=== PATIENT | female | born 1970 | race Caucasian/White ===

== ENCOUNTER 2018-03-18 08:50 | Emergency (ER) | payer OTHER ==
[~2018-03-18] VITALS: Ht 165.1 cm; Wt 108.0 kg
== END 2018-03-18 11:33 | disposition home or self-care (01) ==
LOC: ED 08:50
DX: S09.90XA Unspecified injury of head, initial encounter (principal); S16.1XXA Strain of muscle, fascia and tendon at neck level, initial encounter; M25.519 Pain in unspecified shoulder; F17.200 Nicotine dependence, unspecified, uncomplicated; V49.40XA Driver injured in collision with unspecified motor vehicles in traffic accident, initial encounter
CPT/HCPCS: 70450; 72125; 84703; 99284

== ENCOUNTER 2019-06-24 12:38 | Emergency (ER) | payer OTHER ==
[~2019-06-24] VITALS: Ht 165.1 cm; Wt 108.0 kg
[2019-06-24] MEDS ORDERED: TRAMADOL HCL50 MG PO (14:00)
== END 2019-06-24 14:16 | disposition home or self-care (01) ==
LOC: ED 12:38
DX: G56.21 Lesion of ulnar nerve, right upper limb (principal)
CPT/HCPCS: 73080; 99283

== ENCOUNTER 2019-10-05 18:24 | Emergency (ER) | payer OTHER ==
[~2019-10-05] VITALS: Ht 165.1 cm; Wt 108.0 kg
--- OUTSIDE RECORDS SUMMARY | ~2019-10-05 | XMS | Encounter Summary ---
Demographics + + + | Address | [address] | | | [place] [address] | + + + | Home Phone | | + + + | Preferred Language | Unknown | + + + | Marital Status | Single | + + + | Cheondoism Affiliation | 1013 | + + + | Race | Unknown | + + + | Ethnic Group | Unknown | + + + Author + + + | Author | [facility] | | | and [place] | + + + | Organization | [facility] | | | and [place] | + + + | Address | Unknown | + + + | Phone | Unavailable | + + + Support + + +---------+ + | Name | Relationship | Address | Phone | + + +---------+ + | Jl Reyes | [place] | Unknown | | + + +---------+ + Care Team Providers + +------+ + | Care Coil Winder Hand Name | Role | Phone | + +------+ + | Camilo Cormier MD | PCP | | + +------+ + Encounter Details +--------+ + + + + | Date | Type | Department | Care Team | Description | +--------+ + + + + | 11/14/ | Orders Only | [facility] | Wilbert Jim[facility]nez | Cervical | | 2017 | | PHYSIATRY [address] | MD [address] | radiculopathy | | | | [place], | [place] | (Primary Dx) | | | | [place] [address] | [address] | | | | | [phone] | | | +--------+ + + + + Social History + + + +--------+ + | Tobacco Use | Types | Packs/Day | Years | Date | | | | | Used | | + + + +--------+ + | Former Smoker | Cigarettes | 0.25 | 11 | Quit: 10/21/2014 | + + + +--------+ + + +---+---+---+ | Smokeless Tobacco: | | | | | Never Used | | | | + +---+---+---+ + + +---------+ + | Alcohol Use | Drinks/Week | oz/Week | Comments | + + +---------+ + | Yes | 0 Standard drinks | 0.0 | Social | | | or equivalent | | | + + +---------+ + + + + | Sex Assigned at | Date Recorded | | | | + + + | Not on file | | + + + + + + + | Job Start Date | Occupation | Industry | + + + + | Not on file | Not on file | Not on file | + + + + + + + + | Travel History | Travel Start | Travel End | + + + + + + | No recent travel history available. | + + documented as of this encounter Plan of Treatment Not on filedocumented as of this encounter Results [facility] Cervical Thoracic Interlaminar (11/19/2016 3:35 PM PST) + + | Specimen | + + | | + + + + + | Narrative | Performed At | + + + | 11/19/2016 CERVICAL INTERLAMINAR EPIDURAL STEROID INJECTION | [facility] | | CLINICAL HISTORY: ICD-10 CODE M54.12 CERVICAL RADICULOPATHY | [facility] ([facility]) | | Lana Ross presents to the fluoroscopy suite for a | [facility]ENTER | | fluoroscopically-guided C7-T1 interlaminar epidural steroid injection, | - IMAGING | | left of midline, as part of conservative management for chronic | | | pain with cervical radiculopathy and degenerative disk disease. | | | After informed consent was obtained, the patient lay in the prone | | | position on the fluoroscopy table. The area was identified under | | | fluoroscopic guidance. The area was prepped and draped in sterile | | | fashion. A 25-gauge, 1.5-inch needle was inserted into this region | | | and approximately 3 mL of buffered 1% lidocaine was infused. Then a | | | 22-gauge epidural needle was advanced into the epidural space at the | | | C7-T1 level. Confirmation into the epidural space was obtained | | | with loss of resistance, as well as infusion of approximately 1 mL | | | of Isovue contrast which showed epidural flow. Then, a combination | | | of 2.5 mL of normal saline and 1.5 mL of 6 mg/mL Celestone was | | | infused. The patient tolerated the procedure well without | | | complications. Pre- and post-procedure blood pressures were stable. | | | The patient was given verbal as well as written followup | | | instructions. Prior to the start of the procedure, the following | | | were performed and verified, including correct patient identity, | | | correct site/side marked and visible, agreement on the procedure to | | | be done, correct patient positioning and an accurate procedure | | | consent form. Any safety precautions based on clinical history | | | and/or medication use have been addressed. I personally performed | | | the procedure above. Estimated blood loss: Minimal | | | Complications: None Findings: As expected Anesthesia: Local 1% | | | Lidocaine | | + + + + + + + + | Performing | Address | City/State/Zipcode | Phone Number | | Organization | | | | + + + + + | [facility] | [address] | [place] | [phone] | | [facility] | | [id number] | | | - IMAGING | | | | + + + + + documented in this encounter Visit Diagnoses + + | Diagnosis | + + | Cervical radiculopathy - Primary Brachial neuritis or radiculitis nos | + + documented in this encounter"
--- OUTSIDE RECORDS SUMMARY | ~2019-10-05 | XMS | Encounter Summary ---
Demographics + + + | Address | [address] | | | [place] [address] | + + + | Home Phone | | + + + | Preferred Language | Unknown | + + + | Marital Status | Single | + + + | Alevism Affiliation | 1013 | + + + | Race | Unknown | + + + | Ethnic Group | Unknown | + + + Author + + + | Author | [facility] | | | and [place] | + + + | Organization | [facility] | | | and [place] [...] Team Providers + +------+ + | Care Casing Mixer Name | Role | Phone | + +------+ + | Camilo Cormier MD | PCP | | + +------+ + Encounter Details +--------+ + + + + | Date | Type | Department | Care Team | Description | +--------+ + + + + | 11/20/ | Orders Only | [facility] | Gerry Lyn | Neck pain (Primary | | 2016 | | [address] | Dx) | | | | [address] | [address] | | | | | [place], [place] | [place] [address] | | | | | [address] | [phone] | | | | | [phone] | | | +--------+ + + + [...] Not on filedocumented as of this encounter Visit Diagnoses + + | Diagnosis | + + | Neck pain - Primary Cervicalgia | + + documented in this encounter"
--- OUTSIDE RECORDS SUMMARY | ~2019-10-05 | XMS | Encounter Summary ---
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 100 mg, Oral, 2 | | 17 9:05 | | | | | TIMES DAILY, First dose on Divya | | AM PDT | | | | | 01/24/17 at 1245, First line agent | | | | | | | for constipation, Post-op/Phase | | | | | | | II | | | | | | + +-------+ +--------+---+---+ +-------+ +--------+---+---+ | Given | 01/25/20 | 100 mg | | | | | 17 9:15 | | | | | | PM PDT | | | | +-------+ +--------+---+---+ | Given | 01/25/20 | 100 mg | | | | | 17 1:44 | | | | | | PM PDT | | | | +-------+ +--------+---+---+ +---+---+ | | | +---+---+ + +-------+ +-------+---+---+ | DULoxetine (CYMBALTA) DR | Given | 01/26/20 | 90 mg | | | | capsule 90 mg 90 mg, Oral, | | 17 9:05 | | | | | DAILY, First dose on Sat01/24/17 | | AM PDT | | | | | at 1245, Do not open capsule., | | | | | | | Post-op/Phase II | | | | | | + +-------+ +-------+---+---+ +---+---+ | | | +---+---+ + +-------+ +--------+---+---+ | gabapentin (NEURONTIN) capsule | Given | 01/26/20 | 800 mg | | | | 800 mg 800 mg, Oral, 3 TIMES | | 17 9:05 | | | | | DAILY, First dose on Sat01/24/17 | | AM PDT | | | | | at 1400, Post-op/Phase II | | | | | | + +-------+ +--------+---+---+ +-------+ +--------+---+---+ | Given | 01/25/20 | 800 mg | | | | | 17 9:15 | | | | | | PM PDT | | | | +-------+ +--------+---+---+ | Given | 01/25/20 | 800 mg | | | | | 17 1:44 | | | | | | PM PDT | | | | +-------+ +--------+---+---+ +---+---+ | | | +---+---+ + +-------+ +---------+---+---+ | HYDROcodone-acetaminophen | Given | 01/26/20 | 2 | | | | (NORCO) 7.5-325 mg per tablet 1- | | 17 9:03 | tablets | | | | tablet 1-2 tablet, Oral, EVERY | | AM PDT | | | | | 4 HOURS PRN, Pain, Starting Divya | | | | | | | 01/24/17 at 1228, Maximum | | | | | | | acetaminophen is 4000 mg/day from | | | | | | | all sources, Post-op/Phase II | | | | | | + +-------+ +---------+---+---+ +-------+ +---------+---+---+ | Given | 01/25/20 | 2 | | | | | 17 4:26 | tablets | | | | | PM PDT | | | | +-------+ +---------+---+---+ +---+---+ | | | +---+---+ + + + +---+ +---+ | lactated ringers (LR) infusion | Rate/Dos | 01/26/20 | | 50 mL/hr | | | at 100 mL/hr, Intravenous, | e Change | 17 1:05 | | | | | CONTINUOUS, Starting [facility] 01/24/17 | | AM PDT | | | | | at 0830 | | | | | | + + + +---+ +---+ +---------+ +---+-------+---+ | New Bag | 01/25/20 | | 100 | | | | 17 1:44 | | mL/hr | | | | PM PDT | | | | +---------+ +---+-------+---+ | New Bag | 01/25/20 | | | | | | 17 11:17 | | | | | | AM PDT | | | | +---------+ +---+-------+---+ +---+---+ | | | +---+---+ + +-------+ +--------+---+---+ | lactulose liquid 30 mL 30 mL, | Given | 01/26/20 | 30 mLs | | | | Oral, 2 TIMES DAILY, First dose | | 17 9:05 | | | | | on [facility] 01/24/17 at 1245, If | | AM PDT | | | | | docusate, senna, and polyethylene | | | | | | | glycol ineffective x 24 hours or | | | | | | | not ordered, Post-op/Phase II | | | | | | + +-------+ +--------+---+---+ +-------+ +--------+---+---+ | Given | 01/25/20 | 30 mLs | | | | | 17 9:15 | | | | | | PM PDT | | | | +-------+ +--------+---+---+ | Given | 01/25/20 | 30 mLs | | | | | 17 1:44 | | | | | | PM PDT | | | | +-------+ +--------+---+---+ +---+---+ | | | +---+---+ + +-------+ +------+---+---+ | morphine injection 2-4 mg 2-4 | Given | 01/25/20 | 2 mg | | | | mg, Intravenous, EVERY 2 HOURS | | 17 6:47 | | | | | PRN, Pain, Starting Divya 01/24/17 at | | PM PDT | | | | | 1228, If oral route not an | | | | | | | option. Slow IV push, not faster | | | | | | | than 2mg/minute. First dose must | | | | | | | be lowest dose, titrate to | | | | | | | effective dose by repeat of | | | | | | | lowest dose every 30 minutes prn | | | | | | | pain, may not exceed maximum dose | | | | | | | ordered per interval. Use Pasero | | | | | | | Sedation Scale., Post-op/Phase | | | | | | | II | | | | | | + +-------+ +------+---+---+ +-------+ +------+---+---+ | Given | 01/25/20 | 2 mg | | | | | 17 1:44 | | | | | | PM PDT | | | | +-------+ +------+---+---+ +---+---+ | | | +---+---+ documented in this encounter
--- OUTSIDE RECORDS SUMMARY | ~2019-10-05 | XMS | Encounter Summary ---
Demographics + + + | Address | [address] | | | [place] [address] | + + + | Home Phone | | + + + | Preferred Language | Unknown | + + + | Marital Status | Single | + + + | Scientologist Affiliation | [id number] | + + + | Race | Unknown | + + + | Ethnic Group | Unknown | + + + Author + + + | Author | [facility] | | | and [place] | + + + | Organization | [facility] | | | and [place] [...] Team Providers + +------+ + | Care Electronics Inspector Name | Role | Phone | + +------+ + | Camilo Cormier MD | PCP | | + +------+ + Encounter Details +--------+ + + + + | Date | Type | Department | Care Team | Description | +--------+ + + + + | 11/26/ | Episode | [facility] | Juanita Govea | | | 2017 | Changes | NEUROSURGERY [address] | John, Embedded Software Test Engineer | | | | | [facility] | | | | | | [place] | | | | | | [phone] | | | | | | [phone] | | | +--------+ + + + [...] filedocumented as of this encounter Visit Diagnoses Not on filedocumented in this encounter"
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
--- OUTSIDE RECORDS SUMMARY | ~2019-10-05 | XMS | Encounter Summary ---
Demographics + + + | Address | [address] | | | [place] [address] | + + + | Home Phone | | + + + | Preferred Language | Unknown | + + + | Marital Status | Single | + + + | Holiness Affiliation | 1013 | + + + | Race | Unknown | + + + | Ethnic Group | Unknown | + + + Author + + + | Author | [facility] | | | and [place] | + + + | Organization | [facility] | | | and [...] Team Providers + +------+ + | Care Military Technology Manager Name | Role | Phone | + +------+ + | Camilo Cormier MD | PCP | | + +------+ + Reason for Visit + + + | Reason | Comments | + + + | Pre-Procedure | pre surgical check in instructions | + + + Encounter Details +--------+ + + + + | Date | Type | Department | Care Team | Description | +--------+ + + + + | 01/22/ | Telephone | [facility] [place] | Viktor Lee MD | Pre-Procedure (pre | | 2017 | | NEUROSURGERY [address] | [address] | surgical check in | | | | [address] | [place] [address] | instructions ) | | | | [place] | [phone] | | | | | [address] | | | | | | [phone] | | | +--------+ + + + [...]
--- OUTSIDE RECORDS SUMMARY | ~2019-10-05 | XMS | Encounter Summary ---
Demographics + + + | Address | [address] | | | [place] [address] | + + + | Home Phone | | + + + | Preferred Language | Unknown | + + + | Marital Status | Single | + + + | Zoroastrianism Affiliation | 1013 | + + + | Race | Unknown | + + + | Ethnic Group | Unknown | + + + Author + + + | Author | [facility] | | | and [place] | + + + | Organization | [facility] | | | and [place] [...] Team Providers + +------+ + | Care Manager Of Financial Name | Role | Phone | + +------+ + | Camilo Cormier MD | PCP | | + +------+ + Reason for Visit + + + | Reason | Comments | + + + | Surgery Appointment | | + + + Encounter Details +--------+ + + + + | Date | Type | Department | Care Team | Description | +--------+ + + + + | 01/09/ | Telephone | [facility] | Viktor Lee MD | Surgery Appointment | | 2017 | | NEUROSURGERY [address] | [address] | | | | | [address] | [place] [address] | | | | | [place] | [phone] | | | | | [address] | | | | | | [phone] | | | +--------+ + + + [...]
--- OUTSIDE RECORDS SUMMARY | ~2019-10-05 | XMS | Encounter Summary ---
Demographics + + + | Address | [address] | | | [place] [address] | + + + | Home Phone | | + + + | Preferred Language | Unknown | + + + | Marital Status | Single | + + + | Taoism Affiliation | 1013 | + + + | Race | Unknown | + + + | Ethnic Group | Unknown | + + + Author + + + | Author | [facility] | | | and [place] | + + + | Organization | [facility] | | | and [place] [...] Team Providers + +------+ + | Care Financial Health Counselor Name | Role | Phone | + +------+ + | Camilo Cormier MD | PCP | | + +------+ + Encounter Details +--------+ + + + + | Date | Type | Department | Care Team | Description | +--------+ + + + + | 10/02/ | Abstract | [facility] | Fred Beaulieu, | | | 2015 | | PHYSIATRY [address] | [address] | | | | | [place], | [place] | | | | | [place] [address] | [address] | | | | | [phone] | | | +--------+ + + + [...]
--- OUTSIDE RECORDS SUMMARY | ~2019-10-05 | XMS | Encounter Summary ---
Demographics + + + | Address | [address] | | | [place] [address] | + + + | Home Phone | | + + + | Preferred Language | Unknown | + + + | Marital Status | Single | + + + | Faith Affiliation | 1013 | + + + | Race | Unknown | + + + | Ethnic Group | Unknown | + + + Author + + + | Author | [facility] | | | and [place] | + + + | Organization | [facility] | | | and [...] Team Providers + +------+ + | Care Forge Press Operator Name | Role | Phone | [...] | | | | | | | [place] | | | | | | | [...] | | | | | | [place] | | | | | | | ALLOGRAFT | | | | | | | FOR SPINE | | | | | | | SURGERY ONLY | | | | | | | STRUCTURAL | | | | | | | [place] REMOVE | | | | | | [...] Anterior | | | | [address] | [place] [address] | Cervical Discectomy | | | | [place] | [phone] | Fusion | | | | [address] | | | | | | [phone] | | | +--------+---------+ + + + [...] of admission the patient was admitted to [facility] and underwent a C6-7 AC DF with [...] Electronically signed by: Bryan Pratt, 01/25/2017 8[facility] in this encounter Discharge Instructions Instructions [...] t raise your hands over your head afq2rvth(s)after your surgery. Don t drive until your [...] this your 1 month post op appointment. [id number] [email or web address]. [address] [place] [address], [place] [address]. All righ ts reserved. This information is [...] might be diffe rent from the original. [facility] NEUROSURGERY PROGRESS NOTE PATIENT NAME: Lana Ross [...] has no apparent deficits with short or nursing home memory. MOTOR EXAM: Motor strength is improved SENSORY EXAM: Sensory exam is improved 24 HOUR LABS: [facility] Labs (Last 10 results in the past 24 hours) 01/24/17 0843 Expiration Date 2018-09-03 Internal QC Acceptable Lot Number [id number] test, Urine, Qual Negative Specific [place], POC ASSESSMENT: NEUROSURGICAL DIAGNOSES: S/p lumbar fusion [...] | 1.010, 1.015, | | | | [place], | | 1.020, 1.025 | | | | POC | | | | | + + + + + + | Lot Number | [id number] | | | | + + + [...] | | | 1,000 mg), Oral, ONCE, [facility] 01/24/17 | | AM PDT | | | | | at 0830, For 1 dose, Pre-op | | | | | | + +--------+ +--------+------+------+ +---+---+ | | | +---+---+ + +-------+ +---------+---+---+ | bacitracin in NS solution PRN, | Given | 01/25/20 | 50,000 | | | | Starting [facility] 01/24/17 at 0748, | | 17 [...] | | | | First dose on [facility] 01/24/17 at 1245, | | AM [...] | | | | | | | [facility] 4/6/17 at 1700, For 2 doses, [...] PDT | | | | | Starting [facility] 01/24/17 at 1228, Use | | [...] | | | | | CONTINUOUS, Starting [facility] 01/24/17 | | AM PDT | [...] 9:05 | | | | | on [facility] 01/24/17 at 1245, If | | [...]
--- OUTSIDE RECORDS SUMMARY | ~2019-10-05 | XMS | Encounter Summary ---
Demographics + + + | Address | [address] | | | [place] [address] | + + + | Home Phone | | + + + | Preferred Language | Unknown | + + + | Marital Status | Single | + + + | Baptist Affiliation | 1013 | + + + | Race | Unknown | + + + | Ethnic Group | Unknown | + + + Author + + + | Author | [facility] | | | and [place] | + + + | Organization | [facility] [...] Team Providers + +------+ + | Care Tugger Operator Name | Role | Phone | [...] | +--------+ + + + + | 01/03/ | Telephone | [facility] | Viktor Lee MD | Surgery Appointment | | 2017 | | NEUROSURGERY [address] | [address] | | | | | [address] | [place] [address] | | | | | [place] | [phone] | | | | | [address] | | | | | | [phone] | | | +--------+ + + + [...]
--- OUTSIDE RECORDS SUMMARY | ~2019-10-05 | XMS | Encounter Summary ---
Demographics + + + | Address | [address] | | | [place] [address] | + + + | Home Phone | | + + + | Preferred Language | Unknown | + + + | Marital Status | Single | + + + | Christian Affiliation | 1013 | + + + | Race | Unknown | + + + | Ethnic Group | Unknown | + + + Author + + + | Author | [facility] | | | and [place] | + + + | Organization | [facility] | | | and [place] [...] Team Providers + +------+ + | Care Director Of Math Name | Role | Phone | + [...] [address] | radiculopathy | | | | [address], | [place] | (Primary Dx) | | | | [place] [address] | [address] | | | | | [phone] | | | +--------+ + + + [...] HISTORY: ICD-10 CODE M54.12 CERVICAL RADICULOPATHY | [facility] | | Lana Ross presents to the [...] [address] | [place] | [phone] | | [facility] | | [address] | | | - IMAGING | | | | + + + + + documented in this encounter Visit Diagnoses + + | Diagnosis | + + | Cervical radiculopathy - Primary Brachial neuritis or radiculitis nos | + + documented in this encounter"
--- OUTSIDE RECORDS SUMMARY | ~2019-10-05 | XMS | Encounter Summary ---
Demographics + + + | Address | [address] | | | [place] [address] | + + + | Home Phone | | + + + | Preferred Language | Unknown | + + + | Marital Status | Single | + + + | Spiritism Affiliation | 1013 | + + + | Race | Unknown | + + + | Ethnic Group | Unknown | + + + Author + + + | Author | [facility] | | | and [place] | + + + | Organization | [facility] | | | and [place] [...] Team Providers + +------+ + | Care Hash Slinger Name | Role | Phone | + +------+ + | Camilo Cormier MD | PCP | | + +------+ + Encounter Details +--------+ + + + + | Date | Type | Department | Care Team | Description | +--------+ + + + + | 01/11/ | Preadmit | [facility] | Viktor Lee MD | Pre-operative | | 2017 | Visit | [facility] | [address] | clearance (Primary | | | | CLINIC [address] | [place] [address] | Dx); C7 | | | | [place] | [phone] | radiculopathy; | | | | [address] | | Cervical spondylosis | | | | | | with myelopathy; | | | | | | Cervical spinal | | | | | | stenosis; Foraminal | | | | | | stenosis of cervical | | | | | | region | +--------+ + + + + Social [...] | + +--------+ + + + | CULTURE, MRSA | Routin | 01/11/2017 | Pre-operative | Results for this | | | e | 9:37 AM | clearance | procedure are in the | | | | PDT | | results section. | + +--------+ + + + | CBC WITH | Routin | 01/11/2017 | C7 radiculopathy | Results for this | | DIFFERENTIAL | e | 9:36 AM | Cervical spondylosis | procedure are in the | | | | PDT | with myelopathy | results section. | | | | | Cervical spinal | | | | | | stenosis Foraminal | | | | | | stenosis of cervical | | | | | | region | | + +--------+ + + + | BASIC METABOLIC | Routin | 01/11/2017 | C7 radiculopathy | Results for this | | PANEL | e | 9:36 AM | Cervical spondylosis | procedure are in the | | | | PDT | with myelopathy | results section. | | | | | Cervical spinal | | | | | | stenosis Foraminal | | | | | | stenosis of cervical | | | | | | region | | + +--------+ + + + | ECG 12 LEAD | Routin | 01/11/2017 | C7 radiculopathy | Results for this | | | e | 9:29 AM | Cervical spondylosis | procedure are in the | | | | PDT | with myelopathy | results section. | | | | | Cervical spinal | | | | | | stenosis Foraminal | | | | | | stenosis of cervical | | | | | | region | | + +--------+ + + + documented in this encounter Results Culture, MRSA (01/11/2017 9:37 AM PDT) + + + + + + | Component | Value | Ref Range | Performed | Pathologist | | | | | At | Signature | + + + + + + | Culture | Negative for MRSA by | | [facility] | | | | chromogenic agar method | | [facility] | | | | | | [facility] | | | | | | C[facility] - | | | | | | LABORATORY | | + + + + + + + + | Specimen | + + | Respiratory - Both | | anterior nares (body | | structure) | + + + + + + + | Performing | Address | City/State/Zipcode | Phone Number | | Organization | | | | + + + + + | [facility] | [address] | [place] | [phone] | | [facility] | | [address] | | | - LABORATORY | | | | + + + + + CBC with Differential (01/11/2017 9:36 AM PDT) + +---------+ + + + | Component | Value | Ref Range | Performed | Pathologist | | | | | At | Signature | + +---------+ + + + | WBC | 8.4 | 4.0 - 11.0 K/uL | [facility] | | | | | | [facility] | | | [facility] | [facility] | | | | | | [facility] - | | | | | | LABORATORY | | + +---------+ + + + | RBC | 4.50 | 3.70 - 5.20 | [facility] | | | | | M/uL | [facility] | | | | | | [facility] | | | | | | CENTER - | | | | | | LABORATORY | | + +---------+ + + + | Hemoglobin | 14.2 | 11.5 - 16.0 | [facility] | | | | | g/dL | [facility] | | | | | | [facility] | | | | | | C[facility] - | | | | | | LABORATORY | | + +---------+ + + + | Hematocrit | 41.8 | 34.0 - 47.0 % | [facility] | | | | | | [facility] | | | | | | [facility] | | | | | | C[facility] - | | | | | | LABORATORY | | + +---------+ + + + | MCV | 92.9 | 83.0 - 101.0 fL | [facility] | | | | | | [facility] | | | | | | [facility] | | | | | | C[facility] - | | | | | | LABORATORY | | + +---------+ + + + | MCH | 31.5 | 28.0 - 35.0 pg | [facility] | | | | | | [facility] | | | | | | [facility]ICAL | | | | | | CENTER - | | | | | | LABORATORY | | + +---------+ + + + | MCHC | 33.9 | 32.0 - 36.0 | [facility] | | | | | g/dL | [facility] | | | | | | [facility] | | | | | | CENTER - | | | | | | LABORATORY | | + +---------+ + + + | RDW-CV | 13.1 | <15.0 % | [facility] | | | | | | [facility] | | | | | | [facility] | | | | | | CENTER - | | | | | | LABORATORY | | + +---------+ + + + | Platelet | 248 | 140 - 440 K/uL | [facility] | | | Count | | | [facility] | | | | | | [facility] | | | | | | CENTER - | | | | | | LABORATORY | | + +---------+ + + + | MPV | 8.4 | fL | [facility] | | | | | | [facility] | | | | | | [facility]ICAL | | | | | | CENTER - | | | | | | LABORATORY | | + +---------+ + + + | % | 63.3 | 45.0 - 82.0 % | [facility] | | | Neutrophils | | | [facility] | | | | | | MEDICAL | | | | | | CENTER - | | | | | | LABORATORY | | + +---------+ + + + | % | 25.5 | 20.0 - 45.0 % | [facility] | | | Lymphocytes | | | [facility] | | | | | | MEDICAL | | | | | | CENTER - | | | | | | LABORATORY | | + +---------+ + + + | % Monocytes | 7.8 | 4.0 - 12.0 % | [facility] | | | | | | [facility] | | | | | | [facility]ICAL | | | | | | CENTER - | | | | | | LABORATORY | | + +---------+ + + + | % | 2.2 | 0.0 - 5.0 % | [facility] | | | Eosinophils | | | [facility] | | | | | | MEDICAL | | | | | | CENTER - | | | | | | LABORATORY | | + +---------+ + + + | % Basophils | 1.2 (H) | 0.0 - 1.0 % | [facility] | | | | | | [facility] | | | | | | [facility]ICAL | | | | | | CENTER - | | | | | | LABORATORY | | + +---------+ + + + | Absolute | 5.30 | 1.80 - 8.50 | [facility] | | | Neutrophils | | K/uL | [facility] | | | | | | [facility]ICAL | | | | | | CENTER - | | | | | | LABORATORY | | + +---------+ + + + | Absolute | 2.20 | 0.60 - 3.20 | [facility] | | | Lymphocytes | | K/uL | [facility] | | | | | | MEDICAL | | | | | | CENTER - | | | | | | LABORATORY | | + +---------+ + + + | Absolute | 0.70 | 0.00 - 1.00 | [facility] | | | Monocytes | | K/uL | [facility] | | | | | | MEDICAL | | | | | | CENTER - | | | | | | LABORATORY | | + +---------+ + + + | Absolute | 0.20 | 0.00 - 0.40 | [facility] | | | Eosinophils | | K/uL | [facility] | | | | | | MEDICAL | | | | | | CENTER - | | | | | | LABORATORY | | + +---------+ + + + | Absolute | 0.10 | 0.00 - 0.10 | [facility] | | | Basophils | | K/uL | [facility] | | | | | | MEDICAL | | | | | | CENTER - | | | | | | LABORATORY | | + +---------+ + + + + + | Specimen | + + | Blood | + + + + + + + | Performing | Address | City/State/Zipcode | Phone Number | | Organization | | | | + + + + + | [facility] | [address] | [place] | [phone] | | [facility] | | [address] | | | - LABORATORY | | | | + + + + + Basic Metabolic Panel (01/11/2017 9:36 AM PDT) + + + + + + | Component | Value | Ref Range | Performed | Pathologist | | | | | At | Signature | + + + + + + | Na | 137 | 136 - 149 | [facility] | | | | | mmol/L | [facility] | | | | | | MEDICAL | | | | | | CENTER - | | | | | | LABORATORY | | + + + + + + | K | 4.2 | 3.5 - 5.1 | [facility] | | | | | mmol/L | [facility] | | | | | | [facility]ICAL | | | | | | CENTER - | | | | | | LABORATORY | | + + + + + + | Cl | 104 | 98 - 109 mmol/L | [facility] | | | | | | [facility] | | | | | | MEDICAL | | | | | | CENTER - | | | | | | LABORATORY | | + + + + + + | CO2 | 24 | 24 - 31 mmol/L | [facility] | | | | | | [facility] | | | | | | MEDICAL | | | | | | CENTER - | | | | | | LABORATORY | | + + + + + + | Anion Gap | 9 | 3 - 16 mmol/L | [facility] | | | | | | [facility] | | | | | | MEDICAL | | | | | | CENTER - | | | | | | LABORATORY | | + + + + + + | Glucose | 110 (H) | 70 - 109 mg/dL | [facility] | | | | | | [facility] | | | | | | MEDICAL | | | | | | CENTER - | | | | | | LABORATORY | | + + + + + + | BUN | 11 | 7 - 18 mg/dL | [facility] | | | | | | [facility] | | | | | | MEDICAL | | | | | | CENTER - | | | | | | LABORATORY | | + + + + + + | Creatinine | 0.78 | 0.60 - 1.30 | [facility] | | | | | mg/dL | [facility] | | | | | | MEDICAL | | | | | | CENTER - | | | | | | LABORATORY | | + + + + + + | eGFR if not | >60Comment: GLOMERULAR | >=60 | [facility] | | | | FILTRATION | mL/min/1.73m2 | [facility] | | | SYRIAN | RATE,ESTIMATED | | MEDICAL | | | | mL/min/1.64p9Ajqr than | | CENTER - | | | | 60 Chronic kidney | | LABORATORY | | | | disease,if found over a | | | | | | 3-month period.Less than | | | | | | 15 Kidney failureFor | | | | | | | | | | | | Americans,multiply the | | | | | | calculated GFR by 1.21. | | | | | | | | | | + + + + + + | Calcium | 9.3 | 8.3 - 10.5 | [facility] | | | | | mg/dL | [facility] | | | | | | MEDICAL | | | | | | CENTER - | | | | | | LABORATORY | | + + + + + + | BUN/Creatin | 14.1 | | [facility] | | | ine Ratio | | | [facility] | | | | | | MEDICAL | | | | | | CENTER - | | | | | | LABORATORY | | + + + + + + + + | Specimen | + + | Blood | + + + + + + + | Performing | Address | City/State/Zipcode | Phone Number | | Organization | | | | + + + + + | [facility] | [address] | [place] | [phone] | | [facility] | | [address] | | | - LABORATORY | | | | + + + + + ECG 12 lead (01/11/2017 9:29 AM PDT) + + + + + + | Component | Value | Ref Range | Performed | Pathologist | | | | | At | Signature | + + + + + + | VENTRICULAR | 81 | BPM | [facility] | | | RATE EKG | | | | | + + + + + + | ATRIAL RATE | 81 | BPM | [facility] | | + + + + + + | P-R | 138 | ms | [facility] | | | INTERVAL | | | | | + + + + + + | QRS | 96 | ms | [facility] | | | DURATION | | | | | + + + + + + | Q-T | 398 | ms | [facility] | | | INTERVAL | | | | | + + + + + + | Q-T | 462 | ms | [facility] | | | INTERVAL | | | | | | (CORRECTED) | | | | | + + + + + + | P WAVE AXIS | 27 | degrees | [facility] | | + + + + + + | QRS AXIS | -20 | degrees | [facility] | | + + + + + + | T AXIS | 38 | degrees | [facility] | | + + + + + + | INTERPRETAT | Normal sinus | | [facility] | | | ION TEXT | rhythmNormal ECGNo | | | | | | previous ECGs | | | | | | availableConfirmed by | | | | | | EWA THOMAS MD ([id number]) | | | | | | on 01/12/2017 7:34:47 AM | | | | + + + + + + + + | Specimen | + + | | + + + + + | Narrative | Performed At | + + + | | | + + + + +---------+ + + | Performing | Address | City/State/Zipcode | Phone Number | | Organization | | | | + +---------+ + + | [facility] | | | | + +---------+ + + documented in this encounter Visit Diagnoses + + | Diagnosis | + + | Pre-operative clearance - Primary Preoperative examination, unspecified | + + | C7 radiculopathy Brachial neuritis or radiculitis nos | + + | Cervical spondylosis with myelopathy | + + | Cervical spinal stenosis Spinal stenosis in cervical region | + + | Foraminal stenosis of cervical region Spinal stenosis in cervical region | + + documented in this encounter"
--- OUTSIDE RECORDS SUMMARY | ~2019-10-05 | XMS | Encounter Summary ---
Demographics + + + | Address | [address] | | | [place] [address] | + + + | Home Phone | | + + + | Preferred Language | Unknown | + + + | Marital Status | Single | + + + | Worship Affiliation | 1013 | + + + | Race | Unknown | + + + | Ethnic Group | Unknown | + + + Author + + + | Author | [facility] | | | and [place] | + + + | Organization | [facility] | | | and [...] Team Providers + +------+ + | Care Wire Winding Machine Operator Name | Role | Phone | [...] | | [address] | [place] [address] | instructions ) | | | | [place] | [phone] | | | | | [address] | | | | | | [phone] | | | +--------+ + + + [...]
--- OUTSIDE RECORDS SUMMARY | ~2019-10-05 | XMS | Encounter Summary ---
Demographics + + + | Address | [address] | | | [place] [address] | + + + | Home Phone | | + + + | Preferred Language | Unknown | + + + | Marital Status | Single | + + + | Oriental Orthodox Affiliation | 1013 | + + + | Race | Unknown | + + + | Ethnic Group | Unknown | + + + Author + + + | Author | [facility] | | | and [place] | + + + | Organization | [facility] | | | and [place] [...] Team Providers + +------+ + | Care Bridge Construction Inspector Name | Role | Phone | + +------+ + | Camilo Cormier MD | PCP | | + +------+ + Encounter Details +--------+ + + + + | Date | Type | Department | Care Team | Description | +--------+ + + + + | 01/09/ | Orders Only | [facility] | Viktor Lee MD | C7 radiculopathy | | 2017 | | NEUROSURGERY [address] | [address] | (Primary Dx); | | | | [address] | [place] [address] | Cervical spondylosis | | | | [place], [place] | [phone] | with myelopathy; | | | | [address] | | Cervical spinal | | | | [phone] | | stenosis; Foraminal | | | [...] on filedocumented as of this encounter Results XR Chest PA and Lateral (01/11/2017 10:03 AM PDT) + + | Specimen | + + | | + + + + + | Narrative | Performed At | + + + | EXAM: XR CHEST PA AND LATERAL dated 01/11/2017 10:03 AM HISTORY: | [facility] | | preoperative clearance Comparison: None. TECHNIQUE: Frontal | [facility] | | and lateral views of the chest. FINDINGS: The lungs are | [facility] | | symmetrically aerated. They are clear. There are no pleural | - IMAGING | | effusions. There is no pneumothorax. The cardiac and mediastinal | | | contours are not enlarged. Evidence of prior cervical spine fusion. | | | Scattered degenerative changes throughout the thoracic spine. | | | IMPRESSION - Negative two-view chest radiograph. Dictated and | | | Signed by: Vargas Eid MD Electronically signed: 01/11/2017 | | | 10:09 AM | | + + + + + | Procedure Note | + + | Marcellus, Rad Results In - 01/11/2017 10:12 AM PDT EXAM: XR CHEST PA AND LATERAL dated | | 01/11/2017 10:03 AMHISTORY: preoperative clearanceComparison: None.TECHNIQUE: Frontal and | | lateral views of the chest.FINDINGS:The lungs are symmetrically aerated. They are | | clear. There are no pleuraleffusions. There is no pneumothorax. The cardiac and | | mediastinal contours arenot enlarged. Evidence of prior cervical spine fusion. | | Scattered degenerativechanges throughout the thoracic spine.IMPRESSION -Negative | | two-view chest radiograph. Dictated and Signed by: Vargas Eid MD Electronically | | signed: 01/11/2017 10:09 AM | |FINDINGS: | |The lungs are symmetrically aerated. They are clear. There are no pleural | |effusions. There is no pneumothorax. The cardiac and mediastinal contours are | |not enlarged. Evidence of prior cervical spine fusion. Scattered degenerative | |changes throughout the thoracic spine. | | | |IMPRESSION - | | | |Negative two-view chest radiograph. | | | |Dictated and Signed by: Vargas Eid MD | | Electronically signed: 01/11/2017 10:09 AM | + + + + + + + | Performing | Address | City/State/Zipcode | Phone Number | | Organization | | | | + + + + + | [facility] | [address] | [place], [place] | [phone] | | [facility] | | [address] | | | - IMAGING | | [...] | | | | | M/uL | [facility] | | | | | | [...] [facility] | | | | | [facility] | | | | | | [...] | Neutrophils | | K/uL | [facility] | | | | | | MEDICAL | | | | | | CENTER - | | | | | | LABORATORY | | + +---------+ + + + | Absolute | 2.20 | 0.60 - 3.20 | [facility] | | | Lymphocytes | | K/uL | [facility] | | | | | | MEDICAL | | | | | | CENTER - | | | | | | LABORATORY | | + +---------+ + + + | Absolute | 0.70 | 0.00 - 1.00 | [facility] | | | Monocytes | | K/uL | [facility] | | | | | | MEDICAL | | | | | | CENTER - | | | | | | LABORATORY | | + +---------+ + + + | Absolute | 0.20 | 0.00 - 0.40 | [facility] | | | Eosinophils | | K/uL | [facility] | | | | | | MEDICAL | | | | | | CENTER - | | | | | | LABORATORY | | + +---------+ + + + | Absolute | 0.10 | 0.00 - 0.10 | [facility] | | | Basophils | | K/uL | [facility] | | | | [...] | + + + + + | [facility] | [address] | [place] | [phone] | | [facility] | | [address] | | | - LABORATORY | | [...] | | | | | mmol/L | [facility] | | | | [...] [facility] | | | | | | [facility] | | | | | | [facility] | | | | | | CENTER - | | | | | | LABORATORY | | + + + + + + | BUN | 11 | 7 - 18 mg/dL | [facility] | | | | | | [facility] | | | | | | [facility] | | | | | | CENTER - | | | | | | LABORATORY | | + + + + + + | Creatinine | 0.78 | 0.60 - 1.30 | [facility] | | | | | mg/dL | [facility] | | | | | | MEDICAL | | | | | | CENTER - | | | | | | LABORATORY | | + + + + + + | eGFR if not | >60Comment: GLOMERULAR | >=60 | [facility] | | | | FILTRATION | mL/min/1.73m2 | [facility] | | | [place] | RATE,ESTIMATED | | MEDICAL | | | | mL/min/1.53a1Egqd than | | CENTER - | | [...] | | | | | mg/dL | [facility] | | | | | | MEDICAL | | | | | | CENTER - | | | | | | LABORATORY | | + + + + + + | BUN/Creatin | 14.1 | | [facility] | | | ine Ratio | | | [facility] | | [...] [address] | [place] | [phone] | | [facility] | | [address] | | | - LABORATORY | | [...] | | | | EWA THOMAS MD ([id number]) | | | | | | on [...] + | Diagnosis | + + | C7 radiculopathy - Primary Brachial neuritis or radiculitis nos | + + | Cervical spondylosis with myelopathy | + + | Cervical spinal stenosis Spinal stenosis in cervical region | + + | Foraminal stenosis of cervical region Spinal stenosis in cervical region | + + documented in this encounter"
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
--- OUTSIDE RECORDS SUMMARY | ~2019-10-05 | XMS | Encounter Summary ---
Demographics + + + | Address | [address] | | | [place] [address] | + + + | Home Phone | | + + + | Preferred Language | Unknown | + + + | Marital Status | Single | + + + | Jainism Affiliation | 1013 | + + + | Race | Unknown | + + + | Ethnic Group | Unknown | + + + Author + + + | Author | [facility] | | | and [place] | + + + | Organization | [facility] | | | and [place] [...] Team Providers + +------+ + | Care Fare Enforcement Officer Name | Role | Phone | + +------+ + | Camilo Cormier MD | PCP | | + +------+ + Encounter Details +--------+ + + + + | Date | Type | Department | Care Team | Description | +--------+ + + + + | 01/11/ | [facility] | [facility] | Viktor Lee MD | C7 radiculopathy; | | 2017 | Encounter | MED CTR XRAY [address] | [address] | Cervical spondylosis | | | | [address] | [place] [address] | with myelopathy; | | | | [place] [address] | [phone] | Cervical spinal | | | | [phone] | | stenosis; Foraminal | | | | | Fawad Lentz MD | stenosis of cervical | | | | | [address] | region | | | | | [place] [facility] [place] | | | | | | [address] | | | | | | | | +--------+ + + + [...] + + documented as of this encounter Medications at Time of Discharge [...] + + + +---------+ + + | baclofen | Take 10 mg by mouth | | 0 | | | | (LIORESAL) 10 mg | 2 times daily. | | | | 7 [...] + + + +---------+ + + | DICLOFENAC PO | Take 50 mg by mouth | | 0 | | | | | 2 times daily. | | | | 7 | + + + +---------+ [...] + + + +---------+ + + | | Take 1-2 tablets by | 120 | 0 | 01/26/20 | | | HYDROcodone-acetamin | mouth every 4 hours | tablet | | 17 | 7 | | ophen (NORCO) | as needed for Pain. | | | | | | 7.5-325 mg per | | | | | | | tablet | | | | | | + + + +---------+ + + | ibuprofen (ADVIL, | Take 800 mg by mouth | | 0 | | | | MOTRIN) 200 mg | Twice daily as | | | | 7 | | tablet | needed for Pain. | | | | [...] + +--------+ + + + | XR CHEST PA AND | Routin | 01/11/2017 | C7 radiculopathy | Results for this | | LATERAL | e | 10:03 AM | Cervical spondylosis | procedure are in the | | | | PDT | with myelopathy | results section. | | | | | Cervical spinal | | | | | | stenosis Foraminal | | | | | | stenosis of cervical | | | | | | region | | + +--------+ + + + documented in this encounter Results XR Chest PA and Lateral (01/11/2017 10:03 AM PDT) + + | Specimen | + + | | + + + + + | Narrative | Performed At | + + + | EXAM: XR CHEST PA AND LATERAL dated 01/11/2017 10:03 AM HISTORY: | [facility] | | preoperative clearance Comparison: None. TECHNIQUE: [...] + | [facility] | [address] | [place], [place] | [phone] | | [facility] | | [address] | | | - IMAGING | | | | + + + + + documented in this encounter Visit Diagnoses + + | Diagnosis | + + | C7 radiculopathy Brachial neuritis or radiculitis nos | + + | Cervical spondylosis with myelopathy | + + | Cervical spinal stenosis Spinal stenosis in cervical region | + + | Foraminal stenosis of cervical region Spinal stenosis in cervical region | + + documented in this encounter"
--- OUTSIDE RECORDS SUMMARY | ~2019-10-05 | XMS | Encounter Summary ---
Demographics + + + | Address | [address] | | | [place] [address] | + + + | Home Phone | | + + + | Preferred Language | Unknown | + + + | Marital Status | Single | + + + | Mandaeism Affiliation | 1013 | + + + | Race | Unknown | + + + | Ethnic Group | Unknown | + + + Author + + + | Author | [facility] | | | and [place] | + + + | Organization | [facility] | | | and [place] [...] Team Providers + +------+ + | Care Oyster Culturist Name | Role | Phone | + +------+ + | Camilo Cormier MD | PCP | | + +------+ + Encounter Details +--------+ + + + + | Date | Type | Department | Care Team | Description | +--------+ + + + + | 01/11/ | [facility] | [facility] | Viktor Lee MD | C7 radiculopathy; | | 2017 | Encounter | MED CTR XRAY [address] | [address] | Cervical spondylosis | | | | [address] | [place] [address] | with myelopathy; | | | | [place] [address] | [phone] | Cervical spinal | | | | [phone] | | stenosis; Foraminal | | | | | Fawad Lentz MD | stenosis of cervical | | | | | [address] | region | | | | | [place] [facility] [place] | | | | | | [address] | | | | | | | [...] + | [facility] | [address] | [place], [place] | [phone] | | [facility] | | [address] | | | - IMAGING | | [...]
--- OUTSIDE RECORDS SUMMARY | ~2019-10-05 | XMS | Encounter Summary ---
Demographics + + + | Address | [address] | | | [place] [address] | + + + | Home Phone | | + + + | Preferred Language | Unknown | + + + | Marital Status | Single | + + + | Sikhism Affiliation | 1013 | + + + | Race | Unknown | + + + | Ethnic Group | Unknown | + + + Author + + + | Author | [facility] | | | and [place] | + + + | Organization | [facility] | | | and [place] [...] Team Providers + +------+ + | Care Aircraft Sheet Metal Mechanic Name | Role | Phone | + +------+ + | Camilo Cormier MD | PCP | | + +------+ + Reason for Visit +--------+ + | Reason | Comments | +--------+ + | Other | incision concern | +--------+ + Encounter Details +--------+ + + + + | Date | Type | Department | Care Team | Description | +--------+ + + + + | 01/29/ | Telephone | [facility] [place] | Viktor Lee MD | Other (incision | | 2017 | | NEUROSURGERY [address] | concern) | | | | [address] | [place] [address] | | | | | [place], [place] | [phone] | | | | | [address] | | | | | | [phone] | | | +--------+ + + + [...]
--- OUTSIDE RECORDS SUMMARY | ~2019-10-05 | XMS | Encounter Summary ---
Demographics + + + | Address | [address] | | | [place] [address] | + + + | Home Phone | | + + + | Preferred Language | Unknown | + + + | Marital Status | Single | + + + | Nondenominational Affiliation | 1013 | + + + | Race | Unknown | + + + | Ethnic Group | Unknown | + + + Author + + + | Author | [facility] | | | and [place] | + + + | Organization | [facility] | | | and [place] [...] Team Providers + +------+ + | Care Seo Marketing Specialist Name | Role | Phone | + +------+ + | Camilo Cormier MD | PCP | | + +------+ + Reason for Visit + + + | Reason | Comments | + + + | Imaging Only | | + + + Encounter Details +--------+ + + + + | Date | Type | Department | Care Team | Description | +--------+ + + + + | 02/22/ | Telephone | [facility] [place] | Viktor Lee MD | Imaging Only | | 2018 | | NEUROSURGERY [address] | [address] | | | | | [address] | [place] [address] | | | | | [place] | [phone] | | | | | [address] | | | | | | [phone] | | | +--------+ + + + [...] + + +---------+ + | Yes | 2 Cans of beer 0 | 2.0 | | | | Standard drinks or | | | | | equivalent | | | + + +---------+ [...]
--- OUTSIDE RECORDS SUMMARY | ~2019-10-05 | XMS | Encounter Summary ---
Demographics + + + | Address | [address] | | | [place] [address] | + + + | Home Phone | | + + + | Preferred Language | Unknown | + + + | Marital Status | Single | + + + | Amish Affiliation | 1013 | + + + | Race | Unknown | + + + | Ethnic Group | Unknown | + + + Author + + + | Author | [facility] | | | and [place] | + + + | Organization | [facility] | | | and [...] Team Providers + +------+ + | Care Follow Up Clerk Name | Role | Phone | + +------+ + | Camilo Cormier MD | PCP | | + +------+ + Encounter Details +--------+ + + + + | Date | Type | Department | Care Team | Description | +--------+ + + + + | 01/10/ | Orders Only | [facility] | Conrad Germain | C7 radiculopathy | | 2017 | | NEUROSURGERY [address] | [address] | (Primary Dx); | | | | [address] | [address] | Cervical spondylosis | | | | [place] | [place] [address] | with myelopathy; | | | | [address] | [phone] | S/P cervical spinal | | | | [phone] | | fusion | +--------+ + + + + Social [...] filedocumented as of this encounter Results XR Cervical Spine 2 or 3 Views (02/26/2017 2:49 PM PDT) + + | Specimen | + + | | + + + + + | Narrative | Performed At | + + + | XR CERVICAL SPINE 2 OR 3 VIEWS 02/26/2017 2:49 PM HISTORY: Postop. | [facility] | | COMPARISON: Multiple priors. FINDINGS: Visualized skull base | [facility] | | and facial structures demonstrate no acute findings. Prevertebral | [facility] | | soft tissues are normal. Again visualized are hardware for | - IMAGING | | anterior fusion from C6 through C7 with interbody graft at C6-7. | | | Osseous fusion is observed between C5 and C6. Moderate degenerative | | | changes are noted of the anterior atlantoaxial joint. There is | | | moderate osteophytosis between C4 and C5. Bone mineralization is | | | normal. The dens is normal. Vertebral body height are preserved with | | | no evidence for compression fractures. Disc height are maintained. | | | Facet joints are intact. Soft tissue structures are unremarkable. | | | Visualized upper chest demonstrates no acute findings. | | | IMPRESSION - Stable anterior fusion from C6 through C7. Dictated | | | and Signed by: Nicholas Encarnacion MD Electronically signed: 02/26/2017 | | | 3:10 PM | | + + + + + | Procedure Note | + + | Marcellus, Rad Results In - 02/26/2017 3:13 PM PDT XR CERVICAL SPINE 2 OR 3 VIEWS 02/26/2017 | | 2:49 PMHISTORY: Postop.COMPARISON: Multiple priors.FINDINGS:Visualized skull base and | | facial structures demonstrate no acute findings.Prevertebral soft tissues are | | normal.Again visualized are hardware for anterior fusion from C6 through C7 | | withinterbody graft at C6-7. Osseous fusion is observed between C5 and C6. | | Moderatedegenerative changes are noted of the anterior atlantoaxial joint. There | | ismoderate osteophytosis between C4 and C5. Bone mineralization is normal. Thedens is | | normal. Vertebral body height are preserved with no evidence forcompression fractures. | | Disc height are maintained. Facet joints are intact. Softtissue structures are | | unremarkable. Visualized upper chest demonstrates no acutefindings. IMPRESSION -Stable | | anterior fusion from C6 through C7.Dictated and Signed by: Nicholas Encarnacion MD | | Electronically signed: 02/26/2017 3:10 PM | |degenerative changes are noted of the anterior atlantoaxial joint. There is | |moderate osteophytosis between C4 and C5. Bone mineralization is normal. The | |dens is normal. Vertebral body height are preserved with no evidence for | |compression fractures. Disc height are maintained. Facet joints are intact. Soft | |tissue structures are unremarkable. Visualized upper chest demonstrates no acute | |findings. | | | |IMPRESSION - | |Stable anterior fusion from C6 through C7. | | | |Dictated and Signed by: Nicholas Encarnacion MD | | Electronically signed: 02/26/2017 3:10 PM | + + + + + + + | Performing | Address | City/State/Zipcode | Phone Number | | Organization | | | | + + + + + | [facility] | [address] | [place] | [phone] | | [facility] | | [address] | | | - IMAGING | | | | + + + + + documented in this encounter Visit Diagnoses + + | Diagnosis | + + | C7 radiculopathy - Primary Brachial neuritis or radiculitis nos | + + | Cervical spondylosis with myelopathy | + + | S/P cervical spinal fusion Arthrodesis status | + + documented in this encounter"
--- OUTSIDE RECORDS SUMMARY | ~2019-10-05 | XMS | Encounter Summary ---
Demographics + + + | Address | [address] | | | [place] [address] | + + + | Home Phone | | + + + | Preferred Language | Unknown | + + + | Marital Status | Single | + + + | Taoist Affiliation | 1013 | + + + | Race | Unknown | + + + | Ethnic Group | Unknown | + + + Author + + + | Author | [facility] | | | and [place] | + + + | Organization | and [facility] | | | and [place] [...] Team Providers + +------+ + | Care Electric Car Operator Name | Role | Phone | [...] | | [address] | [place] [address] | | | | | [place] | [phone] | | | | | [address] | | | | | | [phone] | | | +--------+ + + + [...]
--- OUTSIDE RECORDS SUMMARY | ~2019-10-05 | XMS | Encounter Summary ---
Demographics + + + | Address | [address] | | | [place] [address] | + + + | Home Phone [...] + + + | Author | [facility] | | | and [place] | + + + | Organization | [facility] | | | and [...] Team Providers + +------+ + | Care Public Works Laborer Name | Role | Phone | + [...] | | | | | | | MD | | | | | | | [...] | | | | | | SEGMENTS MD | | | | | | | ALLOGRAFT | | | | | | | FOR SPINE | | | | | | | SURGERY ONLY | | | | | | | STRUCTURAL | | | | | | | MD REMOVE | | | | | | | SPINE FIX | | | | | | | DEV,ANTERIOR | | | | | | | FUSION | | | | | | | CERVICAL | | | | | | | ANTERIOR W/ | | | | | | | PLATING | | | +--------+--------+ + + + + Encounter Details +--------+ + + + + | Date | Type | Department | Care Team | Description | +--------+ + + + + | 01/24/ | Hospital | [facility] | Viktor Lee MD | C7 radiculopathy | | 2017 - | Encounter | [facility] SUR[facility] | [address] | (Primary Dx) | | | | [address] | [place] [address] | | | 01/25/ | | [place] [address] | [phone] | | | 2016 | | [phone] | | | +--------+ + + + [...] of admission the patient was admitted to [facility] and underwent a C6-7 AC DF [...] Electronically signed by: Bryan Pratt, [facility]2017 [facility] documented in this encounter Discharge Instructions Instructions [...] t raise your hands over your head [id number])after your surgery. Don t drive until your [...] this your 1 month post op appointment. [id number] [employer] [place] [address]. All righ ts reserved. This information is [...] might be diffe rent from the original. [facility] NEUROSURGERY PROGRESS NOTE PATIENT NAME: Lana [...] Conrad Germain PA-C 10 0 mg at 01/24/17 211 DULoxetine (CYMBALTA) DR capsule 90 mg 90 [...] mg 10 mg Oral Q6H PRN Conrad Walter [place], PA-C senna (SENOKOT) tablet 8.6 mg 8.6 mg Oral BID PRN Conrad Germain PA-C ALLERGIES: No Known Allergies PHYSICAL [...] has no apparent deficits with short or assistant terminal manager memory. MOTOR EXAM: Motor strength is improved SENSORY EXAM: Sensory exam is improved 24 HOUR LABS: [facility] (Last 10 results in the past 24 hours) 01/24/17 0843 Expiration Date 2018-09-03 Internal QC Acceptable Lot Number [id number] test, Urine, Qual Negative Specific Enterprise, POC ASSESSMENT: NEUROSURGICAL DIAGNOSES: S/p lumbar fusion [...] | | + +---------+ + + JACKSON Perla No Charge (01/24/2017 11:09 AM PDT) + + | [...] | 1.010, 1.015, | | | | Enterprise, | | 1.020, 1.025 | | | | POC | | | | | + + + + + + | Lot Number | [id number] | | | | + + + [...] | + + documented in this encounter Administered Medications + +--------+ [...] | 1,000 mg), Oral, ONCE, [facility] 01/24/17 | | AM PDT | [...] | | First dose on [facility] 01/24/17 at 1245, | | AM [...] | | | | | [facility] 01/24/17 at 1700, For 2 doses, | | [...] | | | | Starting [facility] 01/24/17 at 1228, Use | | [...] | | (NORCO) 7.5-325 mg per tablet 1-2 | | 17 9:03 | tablets | | | | tablet 1-2 tablet, Oral, EVERY | | AM PDT | | | | | 4 HOURS PRN, Pain, Starting [facility] | | | | | | | [...] | | | CONTINUOUS, Starting [facility] 01/24/17 | | AM PDT | [...] 9:05 | | | | | on Divya 01/24/17 at 1245, If | | AM [...]
--- OUTSIDE RECORDS SUMMARY | ~2019-10-05 | XMS | Encounter Summary ---
Demographics + + + | Address | [address] | | | [place] [address] | + + + | Home Phone | | + + + | Preferred Language | Unknown | + + + | Marital Status | Single | + + + | Sabianist Affiliation | 1013 | + + + | Race | Unknown | + + + | Ethnic Group | Unknown | + + + Author + + + | Author | [facility] | | | and [place] | + + + | Organization | [facility] | | [...] Team Providers + +------+ + | Care Christian Science Nurse Name | Role | Phone | + +------+ + | Camilo Cormier MD | PCP | | + +------+ + Encounter Details +--------+ + + + + | Date | Type | Department | Care Team | Description | +--------+ + + + + | 06/11/ | Imaging | [facility] | Provider, | | | 2017 | Exam | [facility] | [address] | | | | | IMAGING | [place] | | | | | [phone] | [place] [address] | | +--------+ + + + + [...] + | XR CERVICAL SPINE 2 | Routin | 06/04/2017 | | Results for this | | OR 3 VIEWS | e | 2:15 PM | | procedure are in the | | | | PDT | | results section. | + +--------+ + + + documented in this encounter Results XR Cervical Spine 2 or 3 Views (06/04/2017 2:15 PM PDT) + + | Specimen | + + | | + + + + + | Narrative | Performed At | + + + | External films for comparison only - no result from [place]. | [facility] | + + + + +---------+ + + | Performing | Address | City/State/Zipcode | Phone Number | | Organization | | | | + +---------+ + + | [facility] | | | | + +---------+ + + documented in this encounter Visit Diagnoses Not on filedocumented in this encounter"
--- OUTSIDE RECORDS SUMMARY | ~2019-10-05 | XMS | Encounter Summary ---
Demographics + + + | Address | [address] | | | [place] [address] | + + + | Home Phone | | + + + | Preferred Language | Unknown | + + + | Marital Status | Single | + + + | Hoahaoism Affiliation | 1013 | + + + | Race | Unknown | + + + | Ethnic Group | Unknown | + + + Author + + + | Author | [facility] | | | and [place] | + + + | Organization | and [facility] | | | and [...] Team Providers + +------+ + | Care Assistant Plant Controller Name | Role | Phone | + +------+ + | Camilo Cormier MD | PCP | | + +------+ + Encounter Details +--------+ + + + + | Date | Type | Department | Care Team | Description | +--------+ + + + + | 11/26/ | Orders Only | [facility] | Viktor Lee MD | C7 radiculopathy | | 2017 | | NEUROSURGERY [address] | [address] | (Primary Dx); | | | | [address] | [place] [address] | Cervical spondylosis | | | | [place], [place] | [phone] | with myelopathy; | | | | [address] | | Cervical spinal | | | | [phone] | | stenosis; Foraminal | | | [...]
--- OUTSIDE RECORDS SUMMARY | ~2019-10-05 | XMS | Encounter Summary ---
Demographics + + + | Address | [address] | | | [place] [address] | + + + | Home Phone | | + + + | Preferred Language | Unknown | + + + | Marital Status | Single | + + + | Congregation Affiliation | 1013 | + + + | Race | Unknown | + + + | Ethnic Group | Unknown | + + + Author + + + | Author | [facility] | | | and [place] | + + + | Organization | [facility] | | | and [place] [...] Team Providers + +------+ + | Care Television Host Name | Role | Phone | + [...] | | | | CLINIC [address] | [place] [address] | Dx); C7 | | | | [place] | [phone] | radiculopathy; | | | | [address] | | Cervical spondylosis | | | [...] [address] | [place] | [phone] | | [facility] | | [address] | | | - LABORATORY | | [...] [address] | [place] | [phone] | | [facility] | | [address] | | | - LABORATORY | | [...] | | | | | mg/dL | [facility] | | | | | | MEDICAL | | | | | | CENTER - | | | | | | LABORATORY | | + + + + + + | eGFR if not | >60Comment: GLOMERULAR | >=60 | [facility] | | | | FILTRATION | mL/min/1.73m2 | [facility] | | | MAURITANIAN | RATE,ESTIMATED | | MEDICAL | | | | mL/min/1.61f4Xrzm than | | CENTER - | | [...] | | | | | mg/dL | [facility] | | | | | | MEDICAL | | | | | | CENTER - | | | | | | LABORATORY | | + + + + + + | BUN/Creatin | 14.1 | | [facility] | | | ine Ratio | | | [facility] | | | | | | MEDICAL [...] [address] | [place] | [phone] | | [facility] | | [address] | | | - LABORATORY | | [...] | | | | EWA THOMAS MD ([id number]) | | | | | | on [...]
--- OUTSIDE RECORDS SUMMARY | ~2019-10-05 | XMS | Clinical Summary ---
Demographics + + + | Address | [address] | | | [place] [address] | + + + | Home Phone | | + + + | Preferred Language | Unknown | + + + | Marital Status | Single | + + + | Tenriism Affiliation | 1013 | + + + | Race | Unknown | + + + | Ethnic Group | Unknown | + + + Author + + + | Author | [facility] | | | and [place] | + + + | Organization | [facility] | | | and [place] [...] Team Providers + +------+ + | Care Produce Associate Name | Role | Phone | + +------+ + | Camilo Cormier MD | PCP | | + +------+ + Allergies No Known Allergies Medications + + + +---------+------+------+-------+ | Medication | Sig | Dispensed | Refills | Star | End | Statu | | | | | | t | Date | s | | | | | | Date | | | + + + +---------+------+------+-------+ | levonorgestrel | 1 Device by | | 0 | | | Activ | | (MIRENA) 20 MCG/24HR | Intrauterine route | | | | | e | | IUD | once. | | | | | | + + + +---------+------+------+-------+ | busPIRone (BUSPAR) | Take 15 mg by mouth | | 0 | | | Activ | | 15 mg tablet | 2 times daily. | | | | | e | + + + +---------+------+------+-------+ | VENTOLIN HFA 108 | | | 0 | 04/0 | | Activ | | (90 Base) MCG/ACT | | | | 7/20 | | e | | inhaler | | | | 17 | | | + + + +---------+------+------+-------+ | baclofen | take 1 tablet by | | 0 | 06/0 | | Activ | | (LIORESAL) 10 mg | mouth twice a day if | | | 9/20 | | e | | tablet | needed | | | 17 | | | + + + +---------+------+------+-------+ | DULoxetine HCl | Take 90 mg by mouth | | 0 | | | Activ | | (CYMBALTA PO) | Daily. | | | | | e | + + + +---------+------+------+-------+ Active Problems + + + | Problem | Noted Date | + + + | S/P cervical spinal fusion | 02/26/2017 | + + + | BMI 40.0-44.9, adult | 01/23/2017 | + + + | C7 radiculopathy | 11/24/2016 | + + + | Cervical spondylosis with myelopathy | 11/24/2016 | + + + | Cervical spinal stenosis | 11/24/2016 | + + + | Foraminal stenosis of cervical region | 11/24/2016 | + + + Family History + + +------+ + | Medical History | Relation | Name | Comments | + + +------+ + | No known problems | Daughter | | | + + +------+ + | Diabetes | Father | | | + + +------+ + | Heart disease | Father | | | + + +------+ + | No known problems | Maternal | | | | | Grandfath | | | | | er | | | + + +------+ + | Cancer | Maternal | | BONE | | | Grandmoth | | | | | er | | | + + +------+ + | Fibromyalgia | Mother | | | + + +------+ + | Hepatitis C | Mother | | | + + +------+ + | Lupus | Mother | | | + + +------+ + | Rheum arthritis | Mother | | | + + +------+ + | Heart disease | Paternal | | | | | Grandfath | | | | | er | | | + + +------+ + | Stroke | Paternal | | | | | Grandfath | | | | | er | | | + + +------+ + | Alcohol abuse | Paternal | | | | | Grandmoth | | | | | er | | | + + +------+ + | Alcohol abuse | Paternal | | | | | Uncle | | | + + +------+ + | Diabetes | Paternal | | | | | Uncle | | | + + +------+ + | Fibromyalgia | Sister | | | + + +------+ + | Other (see comment) | Sister | | MESOPHONY | + + +------+ + + +------+ + + | Relation | Name | Status | Comments | + +------+ + + | Daughter | | Alive | | + +------+ + + | Daughter | | | | + +------+ + + | Father | | | | | | | (Age | | | | | 72) | | + +------+ + + | Maternal Grandfather | | | | + +------+ + + | Maternal Grandmother | | | | | | | (Age | | | | | 72) | | + +------+ + + | Mother | | Alive | | + +------+ + + | Paternal Grandfather | | | | | | | (Age | | | | | 75) | | + +------+ + + | Paternal Grandmother | | | | | | | (Age | | | | | 72) | | + +------+ + + | Paternal Uncle | | Alive | | + +------+ + + | Paternal Uncle | | | | + +------+ + + | Paternal Uncle | | | | + +------+ + + | Sister | | Alive | | + +------+ + + | Sister | | | | + +------+ + + | Sister | | | | + +------+ + + Social History + + + [...] recent travel history available. | + + Last Filed Vital Signs + + + + + | Vital Sign | Reading | Time Taken | Comments | + + + + + | Blood Pressure | 127/85 | 06/06/2017 7:56 AM | | | | | PDT | | + + + + + | Pulse | 78 | 06/06/2017 7:56 AM | | | | | PDT [...] + + + + | Weight | 111 kg (244 lb 12.8 | 06/06/2017 7:56 AM | | | | oz) | PDT | | + + + + + | Height | 165.1 cm (5' 5") | 06/06/2017 7:56 AM | | | | | PDT | | + + + + + | Body Mass Index | 40.74 | 06/06/2017 7:56 AM | | | | | PDT | | + + + + + Plan of Treatment + + + + + | Health Maintenance | Due Date | Last Done | Comments | + + + + + | Cervical Cancer | | | | | Screening (Pap) | 3 | | | + + + + + | Breast Cancer | | | | | Screening | 8 | | | + + + + + | Vaccine: Influenza | | | | | (#1) | 9 | | | + + + + + | Vaccine: | | 12/07/2014 | | | Dtap/Tdap/Td (2 - | 5 | | | | Td) | | | | + + + + + Implants + +--------+--------+ +--------+--------+--------+ | Implanted | Type | Area | Manufacture | Device | Shelf | Model | | | | | r | | Expira | / | | | | | | Identi | tion | Serial | | | | | | fier | Date | / Lot | + +--------+--------+ +--------+--------+--------+ | Imp Spn Plt Ti Zevo 21mm 1lvl | Generi | Anteri | SOF[facility]OR | | | [id number] | | - [id number]: Qty: 1 | c | or: | KANIKA - DIV | | | / / | | on 01/24/2017 by Viktor Lee | | Edgardo | [employer] | | | | | MD Su at [facility] | | | - [facility] | | | | | [facility] | | | | | | | + +--------+--------+ +--------+--------+--------+ | Geoffrey Childs Pls 1cc Aseptic | Graft | Anteri | [employer] - | | 09/12/ | [id number] | | - [id number]: Qty: | | or: | MEDT | | 2018 | | | 1 on 01/24/2017 by Yam, | | Neck | | | | /[id number] | | Viktor Blue MD at [facility] | | | | | | [phone] | | [facility] | | | | | | / | + +--------+--------+ +--------+--------+--------+ | Algrft Cerv [id number] - | Graft | Anteri | SPINALGRAFT | | 03/23/ | [id number] | | [id number]: Qty: 1 on | | or: | | | 2019 | | | 01/24/2017 by Viktor Lee, | | Neck | TECHNOLOGIE | | | /[id number] | | at [facility] | | | S - SPNL | | | [address] | | [facility] | | | | | | /[id number] | | | | | | | | 8766 | + +--------+--------+ +--------+--------+--------+ | Screw D-Thrd Slf-Drl 4.0x15mm | Screw | Anteri | [facility] | | | [id number] | | - [id number]: Qty: 2 | | or: | KANIKA - JAMARCUS | | | 5 / / | | on 01/24/2017 by Viktor Lee | | Neck | [employer] | | | | | MD Su at [facility] | | | - [facility] | | | | | [facility] | | | | | | | + +--------+--------+ +--------+--------+--------+ | Screw D-Thrd Slf-Drl 4.0x17mm | Screw | Anteri | [facility]OR | | | [id number] | | - [id number]: Qty: 2 | | or: | DANEK - DIV | | | 7 / / | | on 01/24/2017 by Viktor Lee | | Neck | [employer] | | | | | MD Su at [facility] | | | - JULIANDK | | | | | [facility] | | | | | | | + +--------+--------+ +--------+--------+--------+ Results Not on filefrom Last 3 Months Insurance + +--------+ +--------+ +---------+--------+ | Payer | Benefi | Subscriber | Effect | Phone | Address | Type | | | t Plan | ID | lia | | | | | | / | | Dates | | | | | | Group | | | | | | + +--------+ +--------+ +---------+--------+ | [employer] | [employer] | [id number] | | [phone] | | Medica | | MEDICAID HMO | HEALTH | | [id number]-Pr | 1 | | id | | | MDCD | | esent | | | | | | [place]MO [place] | | | | | | + +--------+ +--------+ +---------+--------+ + +--------+ +--------+ + + | Guarantor Name | Accoun | Relation to | Date | Phone | Billing Address | | | t Type | Patient | of | | | | | | | | | | + +--------+ +--------+ + + | Lana Ross | Person | Self | [birth year] | [address] | | | katharina/Kurtis | | 1970 | [phone] | [place] [address] | | | jose l | | | 0 (Home) | | | | | | | [phone] | | | | | | | 0 (Work) | | + +--------+ +--------+ + + Advance Directives + + + + + | Type | Date Recorded | Patient | Explanation | | | | Boring Machine Operator Double End | | + + + + + | Power of | | | | | Melter Supervisor [employer] | | | | + + + + + | Advance | 01/11/2017 9:20 | | | | Directive | AM | | | + + + + + + + + + + | Code Status | Date | Date | Comments | | | Activated | Inactivated | | + + + + + | Full Code | 01/24/2017 | 01/25/2017 | | | | 12:28 PM | 2:51 PM | | + + + + +
--- OUTSIDE RECORDS SUMMARY | ~2019-10-05 | XMS | Encounter Summary ---
Demographics + + + | Address | [address] | | | [place] [address] | + + + | Home Phone | | + + + | Preferred Language | Unknown | + + + | Marital Status | Single | + + + | Cheondoism Affiliation | 1013 | + + + | Race | Unknown | + + + | Ethnic Group | Unknown | + + + Author + + + | Author | [facility] | | | and [place] | + + + | Organization | [facility] | | | and [place] [...] Team Providers + +------+ + | Care Steam Power Plant Operator Name | Role | Phone | [...] | +--------+ + + + + | 02/06/ | Telephone | [facility] | Viktor Lee MD | Imaging Only | | 2017 | | NEUROSURGERY [address] | [address] | | | | | [address] | [place] [address] | | | | | [place] | [phone] | | | | | [address] | | | | | | [phone] | | | +--------+ + + + [...]
--- OUTSIDE RECORDS SUMMARY | ~2019-10-05 | XMS | Encounter Summary ---
Demographics + + + | Address | [address] | | | [place] [address] | + + + | Home Phone [...] | Organization | [facility] | | | and [place] [...] Team Providers + +------+ + | Care Flat Optical Element Maker Name | Role | Phone | + [...] + + | 05/09/ | Office | [facility] | Conrad Germain | S/P cervical spinal | | 2017 | Visit | NEUROSURGERY [address] | [address] | fusion (Primary Dx); | | | | [address] | [address] | Cervical | | | | [place], [place] | [place] [address] | spondylosis with | | | | [address] | [phone] | myelopathy; | | | | [phone] | | Foraminal stenosis | | | [...] from the original. Conrad Germain PA-C [address] [facility], [address] [place], [place] [address] FAX: NEUROSURGERY FOLLOW-UP CHIEF COMPLAINT: Chief Complaint [...] Procedure Laterality Date Lumbar spine surgery 04[facility]2005 [facility] Cervical spine surgery 03/2007 [place]; [place] Ankle fracture surgery 04/2015 [place]; [place] Fractured back while in labor Cervical spine surgery Anterior 01/24/2017 Procedure: C5 Hardware Removal, C6-7 Anterior Cervical Discectomy Fusion; Surgeon: Viktor Lee MD; Location: [facility] MAIN OR CURRENT MEDICATIONS: Current Outpatient Prescriptions [...]
--- OUTSIDE RECORDS SUMMARY | ~2019-10-05 | XMS | Encounter Summary ---
Demographics + + + | Address | [address] | | | [place] [address] | + + + | Home Phone | | + + + | Preferred Language | Unknown | + + + | Marital Status | Single | + + + | Jew Affiliation | 1013 | + + + | Race | Unknown | + + + | Ethnic Group | Unknown | + + + Author + + + | Author | [facility] | | | and [place] | + + + | Organization | [facility] | | | and [place] | + + + | Address | Unknown | + + + | Phone | Unavailable | + + + Support + + +---------+ + | Name | Relationship | Address | Phone | + + +---------+ + | lJ Reyes | KARO | Unknown | | + + +---------+ + Care Team Providers + +------+ + | Care Barrel Polisher Name | Role | Phone | + [...] | Neurosurgery | Diagnoses | Christofer | Eboni | | | Services | | Cervical | Fred Blue MD | Gerry Feliciano MD | | | Required | | radiculopath | [address] | | | | | y Left hand | [address] | [address] | | | | | weakness | [place], | [place], | | | | | Numbness of | [place] [address] | [place] [address] | | | | | left hand | Phone: | Phone: | | | | | Cervicalgia | [phone] | [phone] | | | | | | Fax: | Fax: | | | | | | [phone] | [phone] | +--------+ + + + + + Reason for Visit + + + | Reason | Comments | + + + | Procedure | LUE NCS | + + + Evaluate & Treat [...] | Cervical | [address] | | | | n | radiculopath | [address] | [place], | | | | | y Numbness | [place], | [place] [address] | | | | | of left hand | [place] [address] | Phone: | | | | | Left hand | Phone: | [phone] | | | | | weakness | [phone] | Fax: | | | | | Left wrist | Fax: | [phone] | | | | | pain | [phone] | | +--------+ + + + + + Encounter Details +--------+ + + + + | Date | Type | Department | Care Team | Description | +--------+ + + + + | 11/13/ | Procedure | [facility] [place] | Fred Beaulieu, | Cervical | | 2017 | visit | PHYSIATRY [address] | [address] | radiculopathy | | | | [place], | [place], [place] | (Primary Dx); Left | | | | [place] [address] | [address] | hand weakness; | | | | [phone] | | Numbness of left | | | | | | hand; Cervicalgia | +--------+ + + + + Social [...] + + + | Blood Pressure | 136/86 | 11/13/2016 8:11 AM | | | | | PST | | + + + + + | Pulse | 82 | 11/13/2016 8:11 AM | | | | | PST | | + + + + + | Temperature | - | - | | + + + + + | Respiratory Rate | 18 | 11/13/2016 8:11 AM | | | | | PST | | + + + + + | Oxygen Saturation | - | - | | + + + + + | Inhaled Oxygen | - | - | | | Concentration | | | | + + + + + | Weight | 108.9 kg (240 lb) | 11/13/2016 8:11 AM | | | | | PST | | + + + + + | Height | 162.6 cm (5' 4") | 11/13/2016 8:11 AM | | | | | PST | | + + + + + | Body Mass Index | 41.2 | 11/13/2016 8:11 AM | | | | | PST | | + + + + + documented in this encounter Patient Instructions Patient Instructions Fred Beaulieu MD - 11/13/2016 9:06 AM PSTContinue current medicati ons. Continue exercises as outlined by physical therapy. Epidural steroid injection is recommended. Neurosurgery consult is recommended. documented in this encounter Progress Notes Fred Beaulieu MD - 11/13/2016 9:24 AM PSTFormatting of this note might be different fro m the original. [facility] Physical Medicine & Rehabilitation [address] [place] [address], [address] [place] [address] Test Date: 11/13/2016 Patient Name: Lana Ross : 1970 Physician: Fred Beaulieu MD (Jr.) MR #: [id number] Sex: Female Referring Physician: Camilo Cormier MD HISTORY: Ms. Ross denies any significant changes to her symptoms since she was last seen. She contin ues to have left neck pain with radiation into the left arm. She has numbness in the left f irst, second and third fingers which is constant in timing. She has weakness in the left isabel nd which she describes as loss of tree surgeon strength. Her pain and numbness is constant in timin g. Her pain today is a 6 out of 10 on a numerical pain scale. She has completed physical t herapy. She continues to do her home exercise program daily, without any improvement. She is using medication for neuropathic pain (gabapentin). She tried using wrist splints at [facility] with some possible reduction of pain in the region of her left elbow. Epidural steroid i njection has been requested, but still pending. PHYSICAL EXAM: She has decrease sensation to monofilament over the left first, second and third fingers. The remainder of sensation is normal in the upper extremities. She has 4/5 hand tree surgeon and tr iceps on the left compared to 5/5 on the right. She has 5/5 biceps, wrist dorsiflexion, and finger abduction in both upper extremities. Reflexes were 2+ over the biceps and brachiora dialis bilaterally. The left triceps reflex was absent. The right triceps reflex was 1+. Tinel s test remains positive over the median nerve at the left wrist. Phalen s test wa s negative bilaterally. Spurling s test to the left increased left arm symptoms. Nerve Conduction Studies Anti Sensory Summary Table Site NR Peak (ms) Norm Peak (ms) O-P Amp (V) Norm O-P Amp Site1 Site2 Delta-0 (ms) Dist (cm) Mauricio (m/s) Norm Mauricio (m/s) Left Median Anti Sensory (2nd Digit) 23C Wrist 3.2 <3.6 54.5 >10 Wrist 2nd Digit 2.5 14.0 56 >39 Elbow 7.1 20.3 Elbow Wrist 3.4 22.5 66 >48 Left Radial Anti Sensory (Base 1st Digit) 24C Wrist 2.4 <2.7 32.0 Wrist Base 1st Digit 1.8 10.0 56 Left Ulnar Anti Sensory (5th Digit) 24C Wrist 3.4 <3.7 33.6 >15.0 Wrist 5th Digit 2.7 14.0 52 >38 B Elbow 6.7 18.4 B Elbow Wrist 3.0 18.0 60 >47 A Elbow 7.9 11.7 A Elbow B Elbow 1.2 10.0 83 Motor Summary Table Site NR Onset (ms) Norm Onset (ms) O-P Amp (mV) Norm O-P Amp Site1 Site2 Delta-0 (ms) Dist (cm) Mauricio (m/s) Norm Mauricio (m/s) Left Median Motor (Abd Poll Brev) 23.7C Wrist 3.8 <4.2 9.0 >5 Elbow Wrist 4.4 23.0 52 >50 Elbow 8.2 9.0 Axilla Elbow 1.6 10.0 62 Axilla 9.8 9.0 Left Ulnar Motor (Abd Dig Minimi) 24C Wrist 3.5 <4.2 14.4 >3 B Elbow Wrist 3.4 18.0 53 >53 B Elbow 6.9 13.5 A Elbow B Elbow 1.4 10.0 71 >53 A Elbow 8.3 13.2 Comparison Summary Table Site NR Peak (ms) Norm Peak (ms) P-T Amp (V) Site1 Site2 Delta-P (ms) Norm Delta (ms) Left Median/Radial Dig I Comparison (Digit 1 - 10cm) 24.2C Median 2.4 <2.9 97.4 Median Radial 0.3 <0.4 Radial 2.7 <2.8 13.9 Left Median/Ulnar Dig IV Comparison (Digit 4 - 14cm) 23.3C Median Wr 3.3 <3.3 34.5 Median Wr Ulnar Wr 0.1 <0.4 Ulnar Wr 3.2 <3.3 46.3 Left Median/Ulnar Palm Comparison (Wrist - 8cm) 24.2C Median Palm 1.9 <2.5 75.7 Median Palm Ulnar Palm 0.0 <0.3 Ulnar Palm 1.9 <2.5 22.5 F Wave Studies NR F-Lat (ms) Lat Norm (ms) L-R F-Lat (ms) L-R Lat Norm Left Median (Mrkrs) (Abd Poll Brev) 23.7C 28.85 <33 <2.2 Left Ulnar (Mrkrs) (Abd Dig Min) 24.3C 27.75 <36 <2.5 EMG Side Muscle Nerve Root Ins Act Fibs Psw Amp Dur Poly Recrt Int Pat Comment Left Deltoid Axillary C5-6 Nml Nml Nml Nml Nml Nml Nml Nml Left Biceps Musculocut C5-6 Nml Nml Nml Nml Nml Nml Nml Nml Left Triceps Radial C6-7-8 Incr 2+ 2+ Nml Nml Poly Nml Nml Left Anconeus Radial C7-8 Incr 1+ 1+ Nml Nml Nml Nml Nml Left PronatorTeres Median C6-7 Incr Nml 1+ Nml Nml Nml Nml Nml Left 1stDorInt Ulnar C8-T1 Nml Nml Nml Nml Nml Nml Nml Nml Left Abd Poll Brev Median C8-T1 Nml Nml Nml Nml Nml Nml Nml Nml Nerve Conduction Studies Motor Left/Right Comparison Site L Lat (ms) R Lat (ms) L-R Lat (ms) L Amp (mV) R Amp (mV) L-R Amp (%) Site1 Site2 L Ve l (m/s) R Mauricio (m/s) L-R Mauricio (m/s) Median Motor (Abd Poll Brev) 23.7C Wrist 3.8 9.0 Elbow Wrist 52 Elbow 8.2 9.0 Axilla Elbow 62 Axilla 9.8 9.0 Ulnar Motor (Abd Dig Minimi) 24C Wrist 3.5 14.4 B Elbow Wrist 53 B Elbow 6.9 13.5 A Elbow B Elbow 71 A Elbow 8.3 13.2 Anti Sensory Left/Right Comparison Site L Lat (ms) R Lat (ms) L-R Lat (ms) L Amp (V) R Amp (V) L-R Amp (%) Site1 Site2 L Mauricio (m/s) R Mauricio (m/s) L-R Mauricio (m/s) Median Anti Sensory (2nd Digit) 23C Wrist 3.2 54.5 Wrist 2nd Digit 56 Elbow 7.1 20.3 Elbow Wrist 66 Radial Anti Sensory (Base 1st Digit) 24C Wrist 2.4 32.0 Wrist Base 1st Digit 56 Ulnar Anti Sensory (5th Digit) 24C Wrist 3.4 33.6 Wrist 5th Digit 52 B Elbow 6.7 18.4 B Elbow Wrist 60 A Elbow 7.9 11.7 A Elbow B Elbow 83 Comparison Left/Right Comparison Site L Lat (ms) R Lat (ms) L-R Lat (ms) L Amp (V) R Amp (V) L-R Amp (%) Median/Radial Dig I Comparison (Digit 1 - 10cm) 24.2C Median 2.4 97.4 Radial 2.7 13.9 Median/Ulnar Dig IV Comparison (Digit 4 - 14cm) 23.3C Median Wr 3.3 34.5 Ulnar Wr 3.2 46.3 Median/Ulnar Palm Comparison (Wrist - 8cm) 24.2C Median Palm 1.9 75.7 Ulnar Palm 1.9 22.5 NCV FINDINGS: All nerve conduction studies (as indicated in the following tables) were with in normal limits. All F Wave latencies were within normal limits. EMG FINDINGS: Needle evaluation of the Left triceps muscle showed increased insertional act ivity, moderately increased spontaneous activity, and polyphasic potentials. The Left ancon eus and the Left pronator teres muscles showed increased insertional activity and slightly i ncreased spontaneous activity. All remaining muscles (as indicated in the following table) showed no evidence of electrical instability. DATABASE: Cervical MRI 06/2016 imaging was personally reviewed by me. The imaging demonstrates prior cervical fusion C5-6. The imaging demonstrates severe neural foraminal narrowing at left C 6-7. IMPRESSION: This is an abnormal study. Nerve conduction study of the left upper extremity was normal. There was no evidence of me thony neuropathy in the left upper extremity. There was no evidence of median neuropathy at the left wrist (e.g. carpal tunnel syndrome). There was no evidence of ulnar neuropathy in the left upper extremity. There was no evidence of radial neuropathy in the left upper extr emity. Needle EMG of the left upper extremity was abnormal. Needle EMG of the left upper extremit y confirmed the presence of left C7 radiculopathy. DISCUSSION: Ms. Ross demonstrated excellent tolerance to nerve conduction study and EMG. She was able t o complete the entire study. As noted above, this study demonstrates and confirms the presence of left C7 radiculopathy. This finding is also consistent with her clinical presentation and cervical MRI findings. Neurosurgery consult is recommended. Ms. Ross s insurance requires request from consult t o come from her PCP. Please request neurosurgery consultation. Ms. Ross should continue medication such as gabapentin. She was encouraged to continue home exercise program as outlined by physical therapy on a routine daily basis, indefinitely. C ervical epidural steroid injection is recommended, but is pending insurance approval. Approximately 15 minutes was spent face to face today with Ms. Ross, beyond the completion o f the nerve conduction study and EMG, over half of which was spent formulating and discussin g her medical treatment plan. Thank you for allowing me to be involved in the care of your patient. If you have any quest ions or comments, please do not hesitate to call. Fred Beaulieu MD (Jr.) Physical Medicine and Rehabilitation Cc: Camilo Cormier MD documented in this en counter Plan of Treatment + + +--------+ + + | Name | Type | Priori | Associated Diagnoses | Order Schedule | | | | ty | | | + + +--------+ + + | Ambulatory referral | Outpatient | Routin | Cervical | Ordered: 11/13/2016 | | to Neurosurgery | Referral | e | radiculopathy Left | | | | | | hand weakness | | | | | | Numbness of left | | | | | | hand Cervicalgia | | + + +--------+ + + documented as of this encounter Visit Diagnoses + + | Diagnosis | + + | Cervical radiculopathy - Primary Brachial neuritis or radiculitis nos | + + | Left hand weakness Muscle weakness (generalized) | + + | Numbness of left hand | + + | Cervicalgia | + + documented in this encounter
--- OUTSIDE RECORDS SUMMARY | ~2019-10-05 | XMS | Encounter Summary ---
Demographics + + + | Address | [address] | | | [place] [address] | + + + | Home Phone [...] + | Organization | [facility] | | | and [place] [...] Team Providers + +------+ + | Care Water Pipe Installer Name | Role | Phone | [...] | | | | | | | MS | | | | | | | [...] | | | | | | SEGMENTS MS | | | | | | | ALLOGRAFT | | | | | | | FOR SPINE | | | | | | | SURGERY ONLY | | | | | | | STRUCTURAL | | | | | | | MS REMOVE | | | | | | [...] + + | 01/24/ | Hospital | [facility] | Viktor Lee MD | C7 radiculopathy | | 2017 - | Encounter | [facility] | [address] | (Primary Dx) | | | | [address] | [place] [address] | | | 01/25/ | | [place] [address] | [phone] | | | 2016 | | [phone] | | | +--------+ + + + [...] of admission the patient was admitted to [facility] and underwent a C6-7 AC DF [...] Electronically signed by: Bryan Pratt, 01/25/2017 8:10 [facility] documented in this encounter Discharge Instructions Instructions [...] t raise your hands over your head [id number])after your surgery. Don t drive until your [...] this your 1 month post op appointment. [id number] [employer]. [address] [place] [address]. All righ ts reserved. This information is [...] might be diffe rent from the original. [facility] NEUROSURGERY PROGRESS NOTE PATIENT NAME: Lana Rsos AGE: 46 y.o. DATE OF SERVICE: 01/25/2017 [...] has no apparent deficits with short or long goods drier memory. MOTOR EXAM: Motor strength is improved SENSORY EXAM: Sensory exam is improved 24 HOUR LABS: [facility] (Last 10 results in the past 24 hours) 01/24/17 0843 Expiration Date 2018-09-03 Internal QC Acceptable Lot Number [id number] test, Urine, Qual Negative Specific [place], POC ASSESSMENT: NEUROSURGICAL DIAGNOSES: S/p lumbar fusion [...] | 1.010, 1.015, | | | | [place], | | 1.020, 1.025 | | | | POC | | | | | + + + + + + | Lot Number | [id number] | | | | + + + [...] | 1,000 mg), Oral, ONCE, [facility] 01/24/17 | | AM PDT | [...] | | First dose on [facility] 01/24/17 at 1245, | | AM [...] | | | | | [facility] 01/24/17 at 1700, For 2 doses, [...] | | | | Starting [facility] 01/24/17 at 1228, Use | | [...] 4 HOURS PRN, Pain, Starting [facility] | | | | | | [...] | | | CONTINUOUS, Starting [facility] 01/24/17 | | AM PDT | [...]
--- OUTSIDE RECORDS SUMMARY | ~2019-10-05 | XMS | Encounter Summary ---
Demographics + + + | Address | [address] | | | [place] [address] | + + + | Home Phone | | + + + | Preferred Language | Unknown | + + + | Marital Status | Single | + + + | Quaker Affiliation | 1013 | + + + | Race | Unknown | + + + | Ethnic Group | Unknown | + + + Author + + + | Author | [facility] | | | and [place] | + + + | Organization | [facility] | | | and [place] | [...] Team Providers + +------+ + | Care Berry Picker Machine Operator Name | Role | Phone [...] | | [address] | [place] [address] | Cervical spondylosis | | | | [place], [place] | [phone] | with myelopathy; | | | | [address] | | Cervical spinal | | | | [phone] | | stenosis; Foraminal | | | [...] + | [facility] | [address] | [place], [place] | [phone] | | [facility] | | [address] | | | - IMAGING | | [...] + | [facility] | [address] | [place] | [phone] | | [facility] | | [address] | | | - LABORATORY | | [...] | | MEDICAL | | | | mL/min/1.48t1Ffqe than | | CENTER - | | [...] [address] | [place] | [phone] | | [facility] | | [address] | | | - LABORATORY | | [...] | | | | EWA THOMAS MD ([id number]) | | | | | | on [...]
--- OUTSIDE RECORDS SUMMARY | ~2019-10-05 | XMS | Encounter Summary ---
Demographics + + + | Address | [address] | | | [place] [address] | + + + | Home Phone | | + + + | Preferred Language | Unknown | + + + | Marital Status | Single | + + + | Jewish Affiliation | 1013 | + + + | Race | Unknown | + + + | Ethnic Group | Unknown | + + + Author + + + | Author | [facility] | | | and [place] | + + + | Organization | [facility] | | | and [place] [...] Team Providers + +------+ + | Care Preservative Filler Machine Operator Name | Role | Phone [...] [address] | | | | | [place], [place] | [place] [address] | | | | | [address] | [phone] | | | | | [phone] | | | +--------+ + + + [...]
--- OUTSIDE RECORDS SUMMARY | ~2019-10-05 | XMS | Encounter Summary ---
Demographics + + + | Address | [address] | | | [place] [address] | + + + | Home Phone | | + + + | Preferred Language | Unknown | + + + | Marital Status | Single | + + + | Uatsdin Affiliation | 1013 | + + + | Race | Unknown | + + + | Ethnic Group | Unknown | + + + Author + + + | Author | [facility] | | | and [place] | + + + | Organization | [facility] | [...] Team Providers + +------+ + | Care Senior Ui Designer Name | Role | Phone | + [...] | | | y Left hand | [address] | [address] | | | | | weakness | [place], | [place], | | | | | Numbness of | [place] [address] | [place] [address] | | | | | left hand | Phone: | Phone: | | | | | Cervicalgia | [phone] | [phone] | | | | | | Fax: | Fax: | | | | | | [phone] | [phone] | +--------+ + + + + + [...] | Cervical | [address] | | | | n | radiculopath | [address] | [place], | | | | | y Numbness | [place], | [place] [address] | | | | | of left hand | [place] [address] | Phone: | | | | | Left hand | Phone: | [phone] | | | | | weakness | [phone] | Fax: | | | | | Left wrist | Fax: | [phone] | | | | | pain | [phone] | | +--------+ + + + + + Encounter Details +--------+ + + + + | Date | Type | Department | Care Team | Description | +--------+ + + + + | 11/13/ | Procedure | [facility] [place] | Fred Beaulieu, | Cervical | | 2017 | visit | PHYSIATRY [address] | [address] | radiculopathy | | | | [place], | [place], [place] | (Primary Dx); Left | | | | [place] [address] | [address] | hand weakness; | | | | [phone] | | Numbness of left | | [...] might be different fro m the original. [facility] Physical Medicine & Rehabilitation [address] [place] [address], [address] [place] [address] Test Date: 11/13/2016 Patient Name: Lana Ross : 1970 Physician: Fred Beaulieu MD (Jr.) MR #: [id number] Sex: Female Referring Physician: Camilo Cormier MD [...] nd which she describes as loss of broker assistant strength. Her pain and numbness is constant in timin g. Her pain today is a 6 out of 10 on a numerical pain scale. She has completed physical t herapy. She continues to do her home exercise program daily, without any improvement. She is using medication for neuropathic pain (gabapentin). She tried using wrist splints at [facility] with some possible reduction of pain in the region of her left elbow. Epidural steroid i njection has been requested, but still pending. PHYSICAL EXAM: She has decrease sensation to monofilament over the left first, second and third fingers. The remainder of sensation is normal in the upper extremities. She has 4/5 hand broker assistant and tr iceps on the left compared [...]
--- OUTSIDE RECORDS SUMMARY | ~2019-10-05 | XMS | Encounter Summary ---
Demographics + + + | Address | [address] | | | [place] [address] | + + + | Home Phone | | + + + | Preferred Language | Unknown | + + + | Marital Status | Single | + + + | Episcopal Affiliation | 1013 | + + + | Race | Unknown | + + + | Ethnic Group | Unknown | + + + Author + + + | Author | [facility] | | | and [place] | + + + | Organization | [facility] | [...] Team Providers + +------+ + | Care Fuel Quality Tech Name | Role | Phone | + [...] | | | | | radiculopath | [address] | [place], [place] | | | | | y Numbness | [place], | [address] | | | | | of left hand | [place] [address] | Phone: | | | | | Left hand | Phone: | [phone] | | | | | weakness | [phone] | Fax: | | | | | Left wrist | Fax: | [phone] | | | | | pain | [phone] | | +--------+ + + + + + Encounter Details +--------+---------+ + + + | Date | Type | Department | Care Team | Description | +--------+---------+ + + + | 11/24/ | [facility] [place] [facility] Viktor Lee MD | Cervical spondylosis | | 2017 | Visit | NEUROSURGERY [address] | [address] | with myelopathy | | | | [address] | [place] [address] | (Primary Dx); C7 | | | | [place] | [phone] | radiculopathy; | | | | [address] | | Cervical spinal | | | | [phone] | | stenosis; Foraminal | | | [...] research this procedure more by going to: [email or web address]/manoj Click the Treatment Options link on the left column. Then, look for Anterior Cervical Discectomy and Fusion (ACDF). documented in this encounter Progress Notes Viktor Lee MD - 11/24/2016 9:59 AM PSTFormatting of this note might be different from t he original. Viktor Lee MD [address] [facility] [place] [address] [place] [address] FAX: NEUROSURGERY HISTORY AND PHYSICAL EXAMINATION CHIEF [...] cervical fusion and lumba r surgery in [place]; both of which she did well with [...] Hamilton gibson Cervical spine surgery 03/2007 [facility] [place] Ankle fracture surgery 04/2015 [place] [...] has no apparent deficits with short or termite technician memory. CRANIAL NERVES: II: Acuity is intact. [...] Intrinsics 5 5 Ulnar Intrinsics 5 5 Hospice Director Strength 5 4 Hip Flexion 5 5 [...]
--- OUTSIDE RECORDS SUMMARY | ~2019-10-05 | XMS | Encounter Summary ---
Demographics + + + | Address | [address] | | | [place] [address] | + + + | Home Phone | | + + + | Preferred Language | Unknown | + + + | Marital Status | Single | + + + | Mandaeism Affiliation | 1013 | + + + | Race | Unknown | + + + | Ethnic Group | Unknown | + + + Author + + + | Author | [facility] | | | and [place] | + + + | Organization | [facility] | | | and [...] Team Providers + +------+ + | Care Detective Sergeant Name | Role | Phone | + +------+ + | Camilo Cormier MD | PCP | | + +------+ + Reason for Visit +---------+ + | Reason | Comments | +---------+ + | Post Op | PO Call | +---------+ + Encounter Details +--------+ + + + + | Date | Type | Department | Care Team | Description | +--------+ + + + + | 04/10/ | Telephone | [facility] [place] | Viktor Lee MD | Post Op (PO Call) | | 2017 | | NEUROSURGERY [address] | [address] | | | | | [address] | [place] [address] | | | | | [place] | [phone] | | | | | [address] | | | | | | [phone] | | | +--------+ + + + [...]
--- OUTSIDE RECORDS SUMMARY | ~2019-10-05 | XMS | Encounter Summary ---
Demographics + + + | Address | [address] | | | [place] [address] | + + + | Home Phone | | + + + | Preferred Language | Unknown | + + + | Marital Status | Single | + + + | Scientology Affiliation | 1013 | + + + | Race | Unknown | + + + | Ethnic Group | Unknown | + + + Author + + + | Author | [facility] | | | and [place] | + + + | Organization | [facility] | | | and [place] [...] Team Providers + +------+ + | Care Substance Abuse Technician Name | Role | Phone | [...] | | [address] | [place] [address] | | | | | [place] | [phone] | | | | | [address] | | | | | | [phone] | | | +--------+ + + + [...]
--- OUTSIDE RECORDS SUMMARY | ~2019-10-05 | XMS | Encounter Summary ---
Demographics + + + | Address | [address] | | | [place] [address] | + + + | Home Phone | | + + + | Preferred Language | Unknown | + + + | Marital Status | Single | + + + | Worship Affiliation | 1013 | + + + | Race | Unknown | + + + | Ethnic Group | Unknown | + + + Author + + + | Author | [facility] | | | and [place] | + + + | Organization | [facility] | | | and [place] [...] Team Providers + +------+ + | Care Coach Professional Athletes Name | Role | Phone | + [...] | | | | | radiculopath | [address] | [address] | | | | | y Numbness | [place], | [address] | | | | | of left hand | [place] [address] | [place], [place] | | | | | Left hand | Phone: | [phone] | | | | | weakness | [phone] | Phone: | | | | | Left wrist | Fax: | [phone] | | | | | pain | [phone] | Fax: | | | | | | | [phone] | +--------+ + + + + + [...] | Cervical | [address] | | | | n | radiculopath | [address] | [place], | | | | | y Numbness | [place], | [place] [address] | | | | | of left hand | [place] [address] | Phone: | | | | | Left hand | Phone: | [phone] | | | | | weakness | [phone] | Fax: | | | | | Left wrist | Fax: | [phone] | | | | | pain | [phone] | | +--------+ + + + + [...] | | | | | radiculopath | [address] | [place], [place] | | | | | y Numbness | [place], | [address] | | | | | of left hand | [place] [address] | Phone: | | | | | Left hand | Phone: | [phone] | | | | | weakness | [phone] | Fax: | | | | | Left wrist | Fax: | [phone] | | | | | pain | [phone] | | +--------+ + + + + [...] Radiculopath | MD [address] | [address] | | | | n | y, cervical | [address] | [place], | | | | | region | [place], | [place] [address] | | | | | | [place] [address] | Phone: | | | | | | Phone: | [phone] | | | | | | [phone] | Fax: | | | | | | Fax: | [phone] | | | | | | [phone] | | +--------+--------+ + + + + Encounter Details +--------+---------+ + + + | Date | Type | Department | Care Team | Description | +--------+---------+ + + + | 10/05/ | Office | [facility] | Fred Beaulieu, | Cervicalgia (Primary | | 2016 | Visit | PHYSIATRY [address] | MD [address] | Dx); Cervical | | | | [address], | [place], [place] | radiculopathy; | | | | [place] [address] | [address] | Numbness of left | | | | [phone] | | hand; Left hand | | [...] ction will be performed at [facility]. Please take note [...] MD - 10/05/2016 1:31 PM PST [facility] PHYSIATRY [address] [facility] [id number] OFFICE NOTE FRED BEAULIEU JR, MD Patient: LANA ROSS Admitting: MR #: [id number] LOC: PT TYPE: Adm Date: 10/05/2016 : 1970 PHYSICAL MEDICINE AND REHABILITATION CONSULT DATE OF : 1970 PRIMARY CARE PROVIDER: Aidan Pires MD. DATE OF SERVICE: 10/05/2016 PATIENT [...] which she describe s as loss of managing director atlas strength. She reports that she drops objects. [...] below. She has not yet seen a [facility] k surgeon. ALLERGIES: NO KNOWN DRUG ALLERGIES. [...] 4 extremities. NEUROLOGIC: Exam demonstrates 4+/5 hand managing director atlas weakness on the left compared to 5/5 [...] is intact in both upper extremities with xqatgl-np-avcg testing. DATABASE: Cervical MRI, 07/10/2016, imaging personally [...] Transcribed on 10/06/2016 05:58:49 by marce job# [id number] Confirmation #: [id number] cc: AIDAN PIRES [facility], Fred Blue MD - 10/05/2016 9:20 AM PSTThis office note has been dictated. Report Confirmation# [id number] signed by Fred Beaulieu MD at 10/05/2016 1:31 PM PSTdocumented in this encounter Plan of Treatment + + +--------+ + + | Name | Type | Priori | Associated Diagnoses | Order Schedule | | | | ty | | | + + +--------+ + + | * [facility] [place] | Outpatient | Routin | Cervicalgia [...]
--- OUTSIDE RECORDS SUMMARY | ~2019-10-05 | XMS | Encounter Summary ---
Demographics + + + | Address | [address] | | | [place] [address] | + + + | Home Phone | | + + + | Preferred Language | Unknown | + + + | Marital Status | Single | + + + | Jainism Affiliation | 1013 | + + + | Race | Unknown | + + + | Ethnic Group | Unknown | + + + Author + + + | Author | [facility] | | | and [place] | + + + | Organization | [facility] | | | and [place] [...] Team Providers + +------+ + | Care Heat And Frost Insulator Name | Role | Phone | + +------+ + | Camilo Cormier MD | PCP | | + +------+ + Encounter Details +--------+ + + + + | Date | Type | Department | Care Team | Description | +--------+ + + + + | 02/26/ | [facility] | [facility] | Conrad Germain | C7 radiculopathy; | | 2016 | Encounter | MED CTR XRAY [address] | [address] | Cervical spondylosis | | | | [place] | [address] | with myelopathy; | | | | [place] [address] | [place] [address] | S/P cervical spinal | | | | [phone] | [phone] | fusion | | | | | | | [...] tablets by | 120 | 0 | 02/27/20 | | | (ROXICODONE) 5 mg | mouth every 4 hours | tablet [...] XR CERVICAL SPINE 2 | Routin | 02/26/2017 | C7 radiculopathy | Results for this | | OR 3 VIEWS | e | 2:49 PM | Cervical spondylosis | procedure are in the | | | | PDT | with myelopathy | results section. | | | | | S/P cervical spinal | | | | | | fusion | | + +--------+ + + + [...] + + + | [address] | Cynthia Murray. | [place] | [phone] | | [facility] | | [address] | | | - IMAGING | | [...]
--- OUTSIDE RECORDS SUMMARY | ~2019-10-05 | XMS | Encounter Summary ---
Demographics + + + | Address | [address] | | | [place] [address] | + + + | Home Phone | | + + + | Preferred Language | Unknown | + + + | Marital Status | Single | + + + | Hinduism Affiliation | 1013 | + + + | Race | Unknown | + + + | Ethnic Group | Unknown | + + + Author + + + | Author | [facility] | | | and [place] | + + + | Organization | [facility] | | | and [...] Team Providers + +------+ + | Care Credit Reporting Clerk Name | Role | Phone | + +------+ + | Camilo Cormier MD | PCP | | + +------+ + Reason for Visit + + + | Reason | Comments | + + + | Medication Refill | | + + + Encounter Details +--------+--------+ + + + | Date | Type | Department | Care Team | Description | +--------+--------+ + + + | 03/25/ | Refill | [facility] [place] | Viktor Lee MD | Medication Refill | | 2017 | | NEUROSURGERY [address] | [address] | | | | | [address] | [place] [address] | | | | | [place] | [phone] | | | | | [address] | | | | | | [phone] | | | +--------+--------+ + + + Social History + + [...]
--- OUTSIDE RECORDS SUMMARY | ~2019-10-05 | XMS | Encounter Summary ---
Demographics + + + | Address | [address] | | | [place] [address] | + + + | Home Phone | | + + + | Preferred Language | Unknown | + + + | Marital Status | Single | + + + | Episcopal Affiliation | 1013 | + + + | Race | Unknown | + + + | Ethnic Group | Unknown | + + + Author + + + | Author | [facility] | | | and [place] | + + + | Organization | [facility] | | | and [place] [...] Team Providers + +------+ + | Care Weekday Babysitter Name | Role | Phone | + [...] | | | | | | | [place] | | | | | | | [...] | | | | | | [place] | | | | | | | ALLOGRAFT | | | | | | | FOR SPINE | | | | | | | SURGERY ONLY | | | | | | | STRUCTURAL | | | | | | | [place] REMOVE | | | | | | [...] + + + + | 01/24/ | Anesthesia | [facility] | BishnuClaire, | | | 2017 | Event | MED CTR OR INTRA OP | DO [address] | | | | | [address] | [place], [place] | | | | | [place], [place] | [address] | | | | | [address] | | | | | | | Danilo Daly MD | | | | | | [address] | | | | | | [place], [place] | | | | | | [address] | | | | | | | | +--------+ + + + + Anesthesia Record + + + + + | Procedure Name | Responsible | Anesthesia Start | Anesthesia Stop Time | | | Anesthesiologist | Time | | + + + + + | C5 Hardware Removal, | Claire Zacarias DO | 01/24/17 0928 | 01/24/17 1125 | | C6-7 Anterior | | | | | Cervical Discectomy | | | | | Fusion (Anterior | | | | | Neck) | | | | + + + + + +----+---+ + + | Da | T | Event | Comment | | te | i | | | | | m | | | | | e | | | +----+---+ + + | 04 | 0 | | | | /0 | 9 | | | | 6/ | 1 | | | | 20 | 9 | | | | 17 | | | | +----+---+ + + | | 0 | An Start | Reassessment prior to anesthesia induction/procedure. | | | 9 | | | | | 2 | | | | | 8 | | | +----+---+ + + | | 0 | An Checkout | Pre-use anesthesia machine/equipment checkout. | | | 9 | | | | | 2 | | | | | 8 | | | +----+---+ + + | | 0 | Preoxygenat | | | | 9 | ed | | | | 2 | | | | | 8 | | | +----+---+ + + | | 0 | Pre-Procedu | | | | 9 | ral Timeout | | | | 2 | Completed | | | | 8 | | | +----+---+ + + | | 0 | Antibiotic | | | | 9 | Given | | | | 3 | | | | | 1 | | | +----+---+ + + | | 0 | An | | | | 9 | Induction | | | | 3 | | | | | 2 | | | +----+---+ + + | | 0 | An | | | | 9 | Intubation | | | | 3 | | | | | 3 | | | +----+---+ + + | | 0 | AN Bite | | | | 9 | Block | | | | 3 | | | | | 3 | | | +----+---+ + + | | 0 | [place] | | | | 9 | 43-degrees | | | | 4 | | | | | 4 | | | +----+---+ + + | | 0 | First | | | | 9 | Inc/Proc St | | | | 5 | | | | | 0 | | | +----+---+ + + | | 1 | AN No | TOF 4/4 with sustained tetanus. | | | 0 | Residual | | | | 0 | NMB | | | | 2 | | | +----+---+ + + | | 1 | Breathing | | | | 1 | Spontaneous | | | | 1 | ly | | | | 1 | | | +----+---+ + + | | 1 | Oropharynx | | | | 1 | Suctioned | | | | 1 | | | | | 6 | | | +----+---+ + + | | 1 | Extubated | | | | 1 | Awake | | | | 2 | | | | | 0 | | | +----+---+ + + | | 1 | an stop | | | | 1 | data | | | | 2 | | | | | 0 | | | +----+---+ + + | | 1 | An Stop | Patient handed off to recovery nurse. | | | 2 | | | | | 5 | | | +----+---+ + + +------+ | Meds | +------+ + + + | Name | Total | + + + | fentaNYL injection (2 mL) | 100 mcg | + + + | propofol (DIPRIVAN) injection | 170 mg | | (bolus) (20 mL) | | + + + | lidocaine 2% | 100 mg | + + + | succinylcholine | 100 mg | + + + | ondansetron | 4 mg | + + + | dexamethasone | 10 mg | + + + | HYDROmorphone | 2.6 mg | + + + | ceFAZolin in saline (ANCEF) IVPB | 2 g | | 2 g | | + + + | scopolamine (TRANSDERM-SCOP) 1 | 1 patch | | mg/3 days 1 patch | | + + + | lactated ringers (LR) infusion | 1,000 mL | + + + + + | Name | + + | N2O Flow Rate (L/Min) | + + | O2 Flow Rate (L/Min) | + + | Insp O2 | + + | Exp SEV | + + | Air Flow Rate (L/Min) | + + + + | No blood administrations on file. | + + +--------+ + + + | Type | Details | Placement | Removal | +--------+ + + + | Periph | 01/24/17; 0900; Right; Hand; | 01/24/17 0900 by | 01/25/17 1328 by | | eral | [id number] catheter system; | Lee Ann Purcell RN | Erin Valencia | | IV | 18 gauge, 1 1/4 in length; 0; | | CATHERINE Agosto | | | tolerated well, distraction; | | | | | short term use; 01/25/17; 1328 | | | +--------+ + + + | Airway | Placement Date: 01/24/17; | 01/24/17932 by | 01/24/17 1120 by | | | Placement Time: 932 (created via | Claire Zacarias DO | Claire Zacarias DO | | | procedure documentation); Mask | | | | | Ventilation: EZ; Airway Grade: 1; | | | | | Successful Technique: Mac; | | | | | Laryngoscope Blade Size: 3; | | | | | Attempts: 1; Airway Type: | | | | | endotracheal; Size: 7; Airway | | | | | Tube Secured At: 22; Trauma: | | | | | none; Other Equipment: stylette; | | | | | Placement Check: exhaled CO2 | | | | | detection device, bilateral chest | | | | | rise, suprasternal notch | | | | | palpation; Removal Date: | | | | | 01/24/17; Removal Time: 1120 | | | +--------+ + + + | Read | 01/24/17; 0958; Bilateral; neck; | 01/24/17 0958 by | 01/25/17 1329 by | | only - | short term use; 01/25/17; 1329 | Darya Draper RN | Erin Valencia | | | | | CATHERINE Agosto | | Incisi | | | | | on | | | | +--------+ + + + | Drain/ | 01/24/17; 1105; #1; collapsible | 01/24/17 1105 by | 01/25/17 1328 by | | Device | closed device; short term use; | Noah Lim RN | Erin E | | Site | 01/25/17; 1328 | | CATHERINE Agosto | +--------+ + + + documented in this encounter Social History + + + +--------+ + [...] | + +--------+ + + + | ANE AIRWAY NOTE | Routin | 01/24/2017 | | Results for this | | | e | 9:52 AM | | procedure are in the | | | | PDT | | results section. | + +--------+ + + + documented in this encounter Results Anesthesia Airway Note (01/24/2017 9:52 AM PDT) + + + | Narrative | Performed At | + + + | Claire Zacarias DO 01/24/2017 9:52 Anesthesia | | | Airway Placement 01/24/2017 9:33 Preprocedure check: patient | | | identified, oxygen, airway assessed, suction, airway equipment | | | checked and patient reassessment prior to induction Mask | | | ventilation: easy Successful technique: Mac Laryngoscope blade | | | size: 3 Airway grade: 1 (Full view of glottis) Other equipment: | | | stylette Attempts: 1 Airway type: endotracheal Size: 7 Cuffed: | | | cuffed Route, reference point: right side of mouth Tube depth: 22 cm | | | Tube secured with: adhesive tape Trauma: none Tube placement | | | verification: bilateral chest rise, carbon dioxide detection and | | | suprasternal notch palpation Performing provider: CLAIRE ZACARIAS | | | IAN | | + + + documented in this encounter Visit Diagnoses Not on filedocumented in this encounter Administered Medications + +--------+ +------+------+------+ | Medication Order | MAR | Action | Dose | Rate | Site | | | Action | Date | | | | + +--------+ +------+------+------+ | ceFAZolin in saline (ANCEF) | Given | 01/25/20 | 2 g | | | | IVPB 2 g 2 g, Intravenous, | | 17 9:31 | | | | | Administer over 30 Minutes, Prior | | AM PDT | | | | | to Incision, Starting Divya 01/24/17 | | | | | | | at 0805, For 1 dose, Administer | | | | | | | within 1 hour of surgical | | | | | | | incision. Keep in refrigerator., | | | | | | | Pre-op, Indications: Surgical | | | | | | | Prophylaxis | | | | | | + +--------+ +------+------+------+ +---+---+ | | | +---+---+ + +-------+ +-------+---+---+ | dexamethasone (DECADRON) 10 | Given | 01/25/20 | 10 mg | | | | mg/mL injection Intravenous, | | 17 9:32 | | | | | PRN, Starting Divya 01/24/17 at 0932, | | AM PDT | | | | | Anesthesia Intra-op | | | | | | + +-------+ +-------+---+---+ +---+---+ | | | +---+---+ + +-------+ +---------+---+---+ | fentaNYL (PF) injection | Given | 01/25/20 | 100 mcg | | | | Intravenous, PRN, Pain, Starting | | 17 9:31 | | | | | Divya 01/24/17 at 0931, Anesthesia | | AM PDT | | | | | Intra-op | | | | | | + +-------+ +---------+---+---+ +---+---+ | | | +---+---+ + +-------+ +--------+---+---+ | HYDROmorphone (DILAUDID) 2 | Given | 01/25/20 | 0.6 mg | | | | mg/mL injection Intravenous, | | 17 11:14 | | | | | PRN, Pain, Starting Divya 01/24/17 at | | AM PDT | | | | | 0947, Anesthesia Intra-op | | | | | | + +-------+ +--------+---+---+ +-------+ +--------+---+---+ | Given | 01/25/20 | 0.4 mg | | | | | 17 10:35 | | | | | | AM PDT | | | | +-------+ +--------+---+---+ | Given | 01/25/20 | 0.4 mg | | | | | 17 10:10 | | | | | | AM PDT | | | | +-------+ +--------+---+---+ +---+---+ | | | +---+---+ + + + +---+ +---+ | lactated ringers (LR) infusion | Rate/Dos | 01/26/20 | | 50 mL/hr | | | at 100 mL/hr, Intravenous, | e Change | 17 1:05 | | | | | CONTINUOUS, Starting Divya 01/24/17 | | AM PDT | | [...] | | +---+---+ + +-------+ +--------+---+---+ | lidocaine (PF) 2% injection | Given | 01/25/20 | 100 mg | | | | Intravenous, PRN, Starting Divya | | 17 9:32 | | | | | 01/24/17 at 0932, Anesthesia | | AM PDT | | | | | Intra-op | | | | | | + +-------+ +--------+---+---+ +---+---+ | | | +---+---+ + +-------+ +------+---+---+ | ondansetron (ZOFRAN) injection | Given | 01/25/20 | 4 mg | | | | Intravenous, PRN, Nausea, | | 17 9:32 | | | | | Vomiting, Starting Divya 01/24/17 at | | AM PDT | | | | | 0932, Anesthesia Intra-op | | | | | | + +-------+ +------+---+---+ +---+---+ | | | +---+---+ + +-------+ +--------+---+---+ | propofol (DIPRIVAN) injection | Given | 01/25/20 | 170 mg | | | | Intravenous, PRN, Starting Divya | | 17 9:32 | | | | | 01/24/17 at 0932, Anesthesia | | AM PDT | | | | | Intra-op | | | | | | + +-------+ +--------+---+---+ +---+---+ | | | +---+---+ + +-------+ +---------+---+---+ | scopolamine (TRANSDERM-SCOP) 1 | Given | 01/25/20 | 1 patch | | | | mg/3 days 1 patch 1 patch, | | 17 9:28 | | | | | Transdermal, ONCE, [facility] 01/24/17 at | | AM PDT | | | | | 0945, For 1 dose, Apply to | | | | | | | mastoid process, Pre-op | | | | | | + +-------+ +---------+---+---+ +---+---+ | | | +---+---+ + +-------+ +--------+---+---+ | succinylcholine (ANECTINE) | Given | 01/25/20 | 100 mg | | | | injection Intravenous, PRN, | | 17 9:32 | | | | | Starting [facility] 01/24/17 at 0932, | | AM PDT | | | | | Anesthesia Intra-op | | | | | | + +-------+ +--------+---+---+ +---+---+ | | | +---+---+ documented in this encounter"
--- OUTSIDE RECORDS SUMMARY | ~2019-10-05 | XMS | Encounter Summary ---
Demographics + + + | Address | [address] | | | [place] [address] | + + + | Home Phone | | + + + | Preferred Language | Unknown | + + + | Marital Status | Single | + + + | Presybeterian Affiliation | 1013 | + + + | Race | Unknown | + + + | Ethnic Group | Unknown | + + + Author + + + | Author | [facility] | | | and [place] | + + + | Organization | [facility] | | | and [...] Team Providers + +------+ + | Care Biometrics Analyst Name | Role | Phone | + [...] Jeannie [place] | | | | | [phone] | [place] [address] | | +--------+ + + + + [...] for comparison only - no result from [facility]. | [facility] | + + + + +---------+ + + | Performing | Address | City/State/Zipcode | Phone Number | | Organization | | | | + +---------+ + + | [facility] | | | | + +---------+ + + documented in this encounter Visit Diagnoses Not on filedocumented in this encounter"
--- OUTSIDE RECORDS SUMMARY | ~2019-10-05 | XMS | Encounter Summary ---
Demographics + + + | Address | [address] | | | [place] [address] | + + + | Home Phone | | + + + | Preferred Language | Unknown | + + + | Marital Status | Single | + + + | Yazdanism Affiliation | 1013 | + + + | Race | Unknown | + + + | Ethnic Group | Unknown | + + + Author + + + | Author | [facility] | | | and [place] | + + + | Organization | [facility] | | | and [...] Team Providers + +------+ + | Care Night Monitor Name | Role | Phone | + +------+ + | Camilo Cormier MD | PCP | | + +------+ + Reason for Visit Service/Procedure (Routine) +--------+--------+ + + + + | Status | Reason | Specialty | Diagnoses / | Referred By | Referred To | | | | | Procedures | Contact | Contact | +--------+--------+ + + + + | Closed | | Radiology | Diagnoses | | [facility] | | | | | Cervical | [place], | [address] | | | | | radiculopath | Wilbert Gonzalez MD | [place], | | | | | y | [address] | [place] | | | | | Procedures | [address] | [address] | | | | | [place] | [facility] [place] | Phone: | | | | | DX/THER SBST | [address] | [phone] | | | | | | Phone: | Fax: | | | | | EPIDURAL/SUB | [phone] | [phone] | | | | | [place]CHEL | Fax: | | | | | | CERV/THORACI | [phone] | | | | | | C OR | | | | | | | TRIAMCINOLON | | | | | | | E ACET INJ | | | | | | | NOS, 10 MG | | | | | | | OR NJX | | | | | | | DX/THER SBST | | | | | | | INTRLMNR | | | | | | | CRV/THRC | | | | | | | W/IMG GDN | | | | | | | C7-T1 | | | | | | | ILESI-Referr | | | | | | | al from | | | | | | | Christofer jr | | | +--------+--------+ + + + + Encounter Details +--------+ + + + + | Date | Type | Department | Care Team | Description | +--------+ + + + + | 11/19/ | Hospital | [facility] | Wilbert Jiménez | Cervical | | 2017 | Encounter | MED CTR XRAY [address] | [address], [address] | radiculopathy | | | | [address] [place] | [place], [place] | | | | | [place] [address] | [address] | | | | | [phone] | | | | | | | Certified [employer]der, [place] | | +--------+ + + + + [...] this encounter Last Filed Vital Signs + +---------+ + + | Vital Sign | Reading | Time Taken | Comments | + +---------+ + + | Blood Pressure | 140/91 | 11/19/2016 3:55 PM | | | | | PST | | + +---------+ + + | Pulse | 77 | 11/19/2016 3:55 PM | | | | | PST | | + +---------+ + + | Temperature | - | - | | + +---------+ + + | Respiratory Rate | - | - | | + +---------+ + + | Oxygen Saturation | - | - | | + +---------+ + + | Inhaled Oxygen | - | - | | | Concentration | | | | + +---------+ + + | Weight | - | - | | + +---------+ + + | Height | - | - | | + +---------+ + + | Body Mass Index | - | - | | + +---------+ + + documented in this encounter Medications at Time [...] +---------+ + + | busPIRone (BUSPAR) | take 1 tablet by | | 0 | 09/26/20 | | | 5 mg tablet | mouth twice a day | | | 16 | 7 | + + + +---------+ + + | diclofenac | take 1 tablet by | | 0 | 08/22/20 | | | (VOLTAREN) 75 mg EC | mouth twice a day | | | 16 | 7 | | tablet | | | | | | + + + +---------+ + + | DULoxetine | 90 mg daily | | 0 | 09/26/20 | | | (CYMBALTA) [address] | | | | 16 | 7 | | capsule | | | | | | + + + +---------+ + + | gabapentin | take 2 tablets by | | 0 | 10/29/19 | | | (NEURONTIN) 800 MG | mouth three times a | | | 17 | 7 | | tablet | day | | | | | + [...] + +--------+ + + + | [place] EPIDURAL STEROID | Routin | 11/19/2016 | Cervical | Results for this | | INJ CERVICAL | e | 3:35 PM | radiculopathy | procedure are in the | | THORACIC | | PST | | results section. | | INTERLAMINAR | | | | | + +--------+ + + + documented in this encounter Results [place] [facility] Cervical Thoracic Interlaminar (11/19/2016 3:35 PM PST) + + | Specimen | + + | | + + + + + | Narrative | Performed At | + + + | 11/19/2016 CERVICAL INTERLAMINAR EPIDURAL STEROID INJECTION | [facility] | | CLINICAL HISTORY: ICD-10 CODE M54.12 CERVICAL RADICULOPATHY | [facility] | | Lana Ross presents to the fluoroscopy suite for [facility] | | fluoroscopically-guided C7-T1 interlaminar epidural steroid [...] | [address] | [address] | [place] | [phone] | | [facility] | | [address] | | | - IMAGING | | | | + + + + + documented in this encounter Visit Diagnoses + + | Diagnosis | + + | Cervical radiculopathy Brachial neuritis or radiculitis nos | + + documented in this encounter Administered Medications + +--------+ +------+------+------+ | Medication Order | MAR | Action | Dose | Rate | Site | | | Action | Date | | | | + +--------+ +------+------+------+ | betamethasone (CELESTONE | Given | 11/19/19 | 9 mg | | | | SOLUSPAN) injection 9 mg 9 mg, | | 17 3:50 | | | | | Other, ONCE, 11/19/16 at 1600, | | PM PST | | | | | For 1 dose | | | | | | + +--------+ +------+------+------+ +---+---+ | | | +---+---+ + +-------+ +-------+---+---+ | iohexol (OMNIPAQUE 300) 300 | Given | 11/19/19 | 4 mLs | | | | mg/mL injection 4 mL 4 mL, | | 17 3:45 | | | | | Other, ONCE, 11/19/16 at 1600, | | PM PST | | | | | For 1 dose | | | | | | + +-------+ +-------+---+---+ +---+---+ | | | +---+---+ + +-------+ +-------+---+---+ | lidocaine buffered 1% injection | Given | 11/19/19 | 5 mLs | | | | 5 mL 5 mL, Other, ONCE, Mon | | 17 3:40 | | | | | 11/19/16 at 1600, For 1 dose | | PM PST | | | | + +-------+ +-------+---+---+ +---+---+ | | | +---+---+ documented in this encounter"
--- OUTSIDE RECORDS SUMMARY | ~2019-10-05 | XMS | Encounter Summary ---
Demographics + + + | Address | [address] | | | [place] [address] | + + + | Home Phone | | + + + | Preferred Language | Unknown | + + + | Marital Status | Single | + + + | Latter Day Affiliation | 1013 | + + + | Race | Unknown | + + + | Ethnic Group | Unknown | + + + Author + + + | Author | [facility] | | | and [place] | + + + | Organization | [facility] [...] Team Providers + +------+ + | Care Cash Management Officer Name | Role | Phone | [...] | PHYSIATRY [address] | [address] | | | | | [place], | [place] | | | | | [place] [address] | [address] | | | | | [phone] | | | +--------+ + + + [...]
--- OUTSIDE RECORDS SUMMARY | ~2019-10-05 | XMS | Encounter Summary ---
Demographics + + + | Address | [address] | | | [place] [address] | + + + | Home Phone | | + + + | Preferred Language | Unknown | + + + | Marital Status | Single | + + + | Orthodox Affiliation | 1013 | + + + | Race | Unknown | + + + | Ethnic Group | Unknown | + + + Author + + + | Author | [facility] | | | and [place] | + + + | Organization | [facility] | [...] Team Providers + +------+ + | Care Butcher All Round Name | Role | Phone | + +------+ + | Camilo Cormier MD | PCP | | + +------+ + Encounter Details +--------+ + + + + | Date | Type | Department | Care Team | Description | +--------+ + + + + | 01/09/ | Episode | [facility] [place] | Juanita Govea | | | 2017 | Changes | NEUROSURGERY [address] | John, Plastic Maker | | | | | [facility] [address] | | | | | | [place] | | | | | | [address] | | | | | | [phone] | | | +--------+ + + + [...]
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
--- OUTSIDE RECORDS SUMMARY | ~2019-10-05 | XMS | Encounter Summary ---
Demographics + + + | Address | [address] | | | [place] [address] | + + + | Home Phone | | + + + | Preferred Language | Unknown | + + + | Marital Status | Single | + + + | Adventist Affiliation | 1013 | + + + | Race | Unknown | + + + | Ethnic Group | Unknown | + + + Author + + + | Author | [facility] | | | and [place] | + + + | Organization | [facility] | | | and [...] Team Providers + +------+ + | Care Surgical Training Specialist Name | Role | Phone | [...] | | | | [place] | [place] [address] | with myelopathy; | | | | [address] | [phone] | S/P cervical spinal | | | | [phone] | | fusion | +--------+ + + [...] ST. | [address] | [place] | [phone] | | [facility] | | [address] | | | - IMAGING | | [...]
--- OUTSIDE RECORDS SUMMARY | ~2019-10-05 | XMS | Encounter Summary ---
Demographics + + + | Address | [address] | | | [place] [address] | + + + | Home Phone [...] | [facility] | | | and [place] | + + + | Address | Unknown | + + + | Phone | Unavailable | + + + Support + + +---------+ + | Name | Relationship | Address | Phone | + + +---------+ + | Jl Reyes | [place] | Unknown | | + + +---------+ + Care Team Providers + +------+ + | Care Clinical Technician Name | Role | Phone | [...] | | [address] | [place] [address] | | | | | [place] | [phone] | | | | | [address] | | | | | | [phone] | | | +--------+--------+ + + + [...]
--- OUTSIDE RECORDS SUMMARY | ~2019-10-05 | XMS | Encounter Summary ---
Demographics + + + | Address | [address] | | | [place] [address] | + + + | Home Phone | | + + + | Preferred Language | Unknown | + + + | Marital Status | Single | + + + | Yarsanism Affiliation | 1013 | + + + | Race | Unknown | + + + | Ethnic Group | Unknown | + + + Author + + + | Author | [facility] | | | and [place] | + + + | Organization | [facility] | | | and [...] Team Providers + +------+ + | Care Acds Block 1 Operator Name | Role | Phone | [...] | 01/11/ | Office | [facility] [place] | Conrad Germain | Cervical spondylosis | | 2017 | Visit | NEUROSURGERY [address] | [address] | with myelopathy | | | | [address] | [address] | (Primary Dx); | | | | [place], [place] | [place] [address] | Cervical spinal | | | | [address] | [phone] | stenosis; C7 | | | | [phone] | | radiculopathy; | | | | [...] 01/11/2017 8:41 AM PDT Conrad Germain PA-C [address] [place] [address], [address] [place], [place] [address] FAX: NEUROSURGERY HISTORY AND PHYSICAL EXAMINATION CHIEF [...] of cervical fusion and lumbar surgery in [place]; both o f which she did well [...] [facility] Cervical spine surgery 03/[facility] Ankle fracture surgery 04/2015 [facility] [...] has no apparent deficits with short or jail memory. CRANIAL NERVES: II: Acuity is intact. [...] Intrinsics 5 5 Ulnar Intrinsics 5 5 Amortization Schedule Clerk Strength 5 4 SENSORY EXAM: Sensory exam [...]
--- OUTSIDE RECORDS SUMMARY | ~2019-10-05 | XMS | Encounter Summary ---
Demographics + + + | Address | [address] | | | [place] [address] | + + + | Home Phone [...] + | Author | [facility] | | | and [place] | + + + | Organization | [facility] | | [...] Team Providers + +------+ + | Care Glass Calibrator Name | Role | Phone | + [...] Changes | NEUROSURGERY [address] | John, Clinical Neuropsychologist | | | | | [facility] [address] | | | | | | [place] | | | | | | [address] | | | | | | [phone] | | | +--------+ + + + [...]
--- OUTSIDE RECORDS SUMMARY | ~2019-10-05 | XMS | Encounter Summary ---
Demographics + + + | Address | [address] | | | [place] [address] | + + + | Home Phone | | + + + | Preferred Language | Unknown | + + + | Marital Status | Single | + + + | Anglican Affiliation | 1013 | + + + | Race | Unknown | + + + | Ethnic Group | Unknown | + + + Author + + + | Author | [facility] | | | and [place] | + + + | Organization | [facility] | | | and [place] | [...] Team Providers + +------+ + | Care Farmworker Machine Name | Role | Phone | + +------+ + | Camilo Cormier MD | PCP | | + +------+ + Encounter Details +--------+ + + + + | Date | Type | Department | Care Team | Description | +--------+ + + + + | 02/26/ | [facility] | Conrad Germain | C7 radiculopathy; | | 2016 | Encounter | MED CTR XRAY [address] | [address] | Cervical spondylosis | | | | [place] | [address] | with myelopathy; | | | | [place] [address] | [place] [address] | S/P cervical spinal | | | | [phone] | [phone] | fusion | | | | | [...] [address] | Cynthia [address]. | [place] | [phone] | | [facility] | | [address] | | | - IMAGING | | [...]
--- OUTSIDE RECORDS SUMMARY | ~2019-10-05 | XMS | Clinical Summary ---
Demographics + + + | Address | [address] | | | [place] [address] | + + + | Home Phone [...] + + + | Author | [facility] | | | and [place] | + + + | Organization | [facility] | | | and [place] [...] Team Providers + +------+ + | Care Intern Brand Name | Role | Phone | + [...] | Anteri | [place] | | | [id number] | | - [id number]: Qty: 1 | c | or: | KANIKA - DIV | | | / / | | on 01/24/2017 by Viktor Lee | | Edgardo | [employer]TR[employer] | | | | | MD Su at [facility] | | | - SFDK | | | | | [facility] | | | | | | | + +--------+--------+ +--------+--------+--------+ | Geoffrey Childs Pls 1cc Aseptic | Graft | Anteri | MEDTRONIC - | | 09/12/ | [id number] | | - [id number]: Qty: | | or: | MEDT | | 2018 | | | 1 on 01/24/2017 by Yam, | | Neck | | | | /[id number] | | Viktor Blue MD at [facility] | | | | | | 8-118 | | [facility] | | | | | | / | + +--------+--------+ +--------+--------+--------+ | Algrft Cerv [id number] - | Graft | Anteri | SPINALGRAFT | | 03/23/ | [id number] | | [id number]: Qty: 1 on | | or: | | | 2019 | | | 01/24/2017 by Viktor Lee, | | Neck | TECHNOLOGIE | | | /[id number] | | at [facility] | | | S - SPNL | | | 266 | | [facility] | | | | | | /[id number] | | | | | | | | 8766 | + +--------+--------+ +--------+--------+--------+ | Screw D-Thrd Slf-Drl 4.0x15mm | Screw | Anteri | [place] | | | [id number] | | - [id number]: Qty: 2 | | or: | KANIKA - JAMARCUS | | | 5 / / | | on 01/24/2017 by Viktor Lee | | Neck | [employer] | | | | | MD Su at [facility] | | | - SFDK | | | | | [facility] | | | | | | | + +--------+--------+ +--------+--------+--------+ | Screw D-Thrd Slf-Drl 4.0x17mm | Screw | Anteri | [place] | | | [id number] | | - [id number]: Qty: 2 | | or: | DANEK - DIV | | | 7 / / | | on 01/24/2017 by Viktor Lee | | Neck | [employer] | | | | | MD Su at [facility] | | | - JULIANDK | | | | | [facility] | | | | | | [...] | [employer] | MODA | [id number] | | [phone] | | Med[employer] | | MEDICAID HMO [...] | | katharina/Kurtis | | 1970 | [phone] | [place] [address] | | | jose l | | | 0 (Home) | | | | | | | [phone] | | | | | | | 0 (Work) | | + +--------+ +--------+ + + Advance Directives + + + + + | Type | Date Recorded | Patient | Explanation | | | | Fermentation Operator | | + + + + + | Power of | | | | | Bakery Worker | | | | + + + [...]
--- OUTSIDE RECORDS SUMMARY | ~2019-10-05 | XMS | Encounter Summary ---
Demographics + + + | Address | [address] | | | [place] [address] | + + + | Home Phone | | + + + | Preferred Language | Unknown | + + + | Marital Status | Single | + + + | Orthodoxy Affiliation | 1013 | + + + | Race | Unknown | + + + | Ethnic Group | Unknown | + + + Author + + + | Author | [facility] | | | and [place] | + + + | Organization | [facility] | | | and [place] [...] Team Providers + +------+ + | Care Deputy Probation Officer Name | Role | Phone | [...] | | [address] | [place] [address] | | | | | [place], [place] | [phone] | | | | | [address] | | | | | | [phone] | | | +--------+ + + + [...]
--- OUTSIDE RECORDS SUMMARY | ~2019-10-05 | XMS | Encounter Summary ---
Demographics + + + | Address | [address] | | | [place] [address] | + + + | Home Phone | | + + + | Preferred Language | Unknown | + + + | Marital Status | Single | + + + | Anabaptist Affiliation | 1013 | + + + | Race | Unknown | + + + | Ethnic Group | Unknown | + + + Author + + + | Author | [facility] | | | and [place] | + + + | Organization | [facility] | | | and [...] Team Providers + +------+ + | Care Powder Loader Name | Role | Phone | + [...] | Office | [facility] [place] | Viktor Lee MD | S/P cervical spinal | | 2017 | Visit | NEUROSURGERY [address] | [address] | fusion (Primary Dx) | | | | [address] | [place] [address] | | | | | [place] | [phone] | | | | | [address] | | | | | | [phone] | | | +--------+---------+ + + + [...] in this encounter Progress Notes Swathi Deleon, Catholic Priest - 06/06/2017 7:30 AM PDTREVIEW OF SYSTEMS [...] the origi nal. Viktor Lee MD [address] [facility], [address] [place], [place] [address] FAX: NEUROSURGERY FOLLOW-UP CHIEF COMPLAINT: Chief Complaint [...] Date ANKLE FRACTURE SURGERY 04/2015 [facility]; [facility] CERVICAL SPINE SURGERY 03/2007 [facility] CERVICAL SPINE SURGERY Anterior 01/24/2017 Procedure: C5 Hardware Removal, C6-7 Anterior Cervical Discectomy Fusion; Surgeon: Viktor Lee MD; Location: [facility] MAIN OR FRACTURED BACK WHILE IN LABOR [...] hope that they can avoid additional surgery. [facility] pain medication does not appear to be [...]
--- OUTSIDE RECORDS SUMMARY | ~2019-10-05 | XMS | Encounter Summary ---
Demographics + + + | Address | [address] | | | [place] [address] | + + + | Home Phone | | + + + | Preferred Language | Unknown | + + + | Marital Status | Single | + + + | Hoahaoism Affiliation | 1013 | + + + | Race | Unknown | + + + | Ethnic Group | Unknown | + + + Author + + + | Author | [facility] | | | and [place] | + + + | Organization | [facility] | | | and [place] | [...] Team Providers + +------+ + | Care Charhouse Worker Name | Role | Phone | + [...] | | | | | | | [place] | | | | | | | [...] | | | | | | [place] | | | | | | | ALLOGRAFT | | | | | | | FOR SPINE | | | | | | | SURGERY ONLY | | | | | | | STRUCTURAL | | | | | | | [place] REMOVE | | | | | | [...] | | | | | [address] | [place], [place] | | | | | [place], [place] | [address] | | | | | [address] | | | | | | | Danilo Daly MD | | | | | | [address] | | | | | | [place], [place] | | | | | | [address] | | | | | | | [...] +----+---+ + + | | 0 | [place] | | | | 9 | 43-degrees [...] 01/25/17 1328 by | | eral | [id number] catheter system; | Lee Ann Purcell RN [...] | | | | | Transdermal, ONCE, [facility] 01/24/17 at | | AM PDT | [...] 9:32 | | | | | Starting [facility] 01/24/17 at 0932, | | AM PDT | | | | | Anesthesia Intra-op | | | | | | + +-------+ +--------+---+---+ +---+---+ | | | +---+---+ documented in this encounter"
--- OUTSIDE RECORDS SUMMARY | ~2019-10-05 | XMS | Encounter Summary ---
Demographics + + + | Address | [address] | | | [place] [address] | + + + | Home Phone | | + + + | Preferred Language | Unknown | + + + | Marital Status | Single | + + + | Pentecostal Affiliation | 1013 | + + + | Race | Unknown | + + + | Ethnic Group | Unknown | + + + Author + + + | Author | [facility] | | | and [place] | + + + | Organization | [facility] | | [...] Team Providers + +------+ + | Care Grooving Lathe Tender Name | Role | Phone | + [...] Changes | NEUROSURGERY [address] | John, Cell Stripper | | | | | [facility] | | | | | | [place] | | | | | | [address] | | | | | | [phone] | | | +--------+ + + + [...]
--- OUTSIDE RECORDS SUMMARY | ~2019-10-05 | XMS | Encounter Summary ---
Demographics + + + | Address | [address] | | | [place] [address] | + + + | Home Phone [...] Organization | [facility] | | | and [...] Team Providers + +------+ + | Care Microbiology Professor Name | Role | Phone | + [...] | | [address] | [place] [address] | | | | | [place] | [phone] | | | | | [address] | | | | | | [phone] | | | +--------+ + + + [...]
--- OUTSIDE RECORDS SUMMARY | ~2019-10-05 | XMS | Encounter Summary ---
Demographics + + + | Address | [address] | | | [place] [address] | + + + | Home Phone | | + + + | Preferred Language | Unknown | + + + | Marital Status | Single | + + + | Faith Affiliation | 1013 | + + + | Race | Unknown | + + + | Ethnic Group | Unknown | + + + Author + + + | Author | [facility] | | | and [place] | + + + | Organization | [facility] | | | and [place] [...] Team Providers + +------+ + | Care Blender Name | Role | Phone | + [...] | | | | | | | ND | | | | | | | [...] | | | | | | SEGMENTS [place] | | | | | | | ALLOGRAFT | | | | | | | FOR SPINE | | | | | | | SURGERY ONLY | | | | | | | STRUCTURAL | | | | | | | ND REMOVE | | | | | | [...] + + | 01/24/ | Hospital | [facility] | Viktor Lee MD | | | 2017 | Encounter | MED CTR XRAY [address] | | | | | [place] | [place] [address] | | | | | [place] [address] | [phone] | | | | | [phone] | | | +--------+ + + + [...] | + +--------+ + + + | JACKSON DANIEL STATS NO | Routin | 01/24/2017 | | Results for this | | CHARGE | e | 11:09 AM | | procedure are in the | | | | PDT | | results section. | + +--------+ + + + documented in this encounter Results JACKSON Delgado-Tan Stats No Charge (01/24/2017 11:09 AM PDT) + [...]
--- OUTSIDE RECORDS SUMMARY | ~2019-10-05 | XMS | Encounter Summary ---
Demographics + + + | Address | [address] | | | [place] [address] | + + + | Home Phone | | + + + | Preferred Language | Unknown | + + + | Marital Status | Single | + + + | Worship Affiliation | 1013 | + + + | Race | Unknown | + + + | Ethnic Group | Unknown | + + + Author + + + | Author | [facility] | | | and [place] | + + + | Organization | [facility] | | | and [...] Team Providers + +------+ + | Care Banana Carrier Name | Role | Phone | + [...] | | | | | | | ID | | | | | | | [...] | | | | | | SEGMENTS ID | | | | | | | ALLOGRAFT | | | | | | | FOR SPINE | | | | | | | SURGERY ONLY | | | | | | | STRUCTURAL | | | | | | | ID REMOVE | | | | | | [...] + + | 01/24/ | Hospital | [facility] | Viktor Lee MD | | | 2017 | Encounter | MED CTR XRAY [address] | | | | | [place] | [place] [address] | | | | | [place] [address] | [phone] | | | | | [phone] | | | +--------+ + + + [...]
--- OUTSIDE RECORDS SUMMARY | ~2019-10-05 | XMS | Encounter Summary ---
Demographics + + + | Address | [address] | | | [place] [address] | + + + | Home Phone [...] Organization | [facility] | | | and [...] Team Providers + +------+ + | Care Shuttlecock Feather Trimmer Name | Role | Phone | + [...] | Cervical | [place], | [address] | | | | | radiculopath | Wilbert Gonzalez MD | Alexa Liu, | | | | | y | [address] | [place] | | | | | Procedures | [address] | [address] | | | | | [place] | [facility] [place] | Phone: | | | | | DX/THER SBST | [address] | [phone] | | | | | | Phone: | Fax: | | | | | EPIDURAL/SUB | [phone] | [phone] | | | | | MITCHEL | Fax: | | | | | | CERV/THORACI | [phone] | | | | | | C SD | | | | | | | TRIAMCINOLON | | | | | | | E ACET INJ | | | | | | | NOS, 10 MG | | | | | | | [place] | | | | | | [...] + + | 11/19/ | Hospital | [facility] | Wilbert Jiménez | Cervical | | 2017 | Encounter | MED CTR XRAY [address] | [address], [address] | radiculopathy | | | | [place] | [place], [place] | | | | | [place] [address] | [address] | | | | | [phone] | | | | | | | Loan Review Officer, [place] | | +--------+ + + + [...] HISTORY: ICD-10 CODE M54.12 CERVICAL RADICULOPATHY | [facility] | | Lana Ross presents to the fluoroscopy suite for [facility] | | fluoroscopically-guided C7-T1 interlaminar epidural steroid [...] ST. | [address] | [place] | [phone] | | [facility] | | [address] | | | - IMAGING | | [...]
--- OUTSIDE RECORDS SUMMARY | ~2019-10-05 | XMS | Encounter Summary ---
Demographics + + + | Address | [address] | | | [place] [address] | + + + | Home Phone | | + + + | Preferred Language | Unknown | + + + | Marital Status | Single | + + + | Samaritan Affiliation | 1013 | + + + | Race | Unknown | + + + | Ethnic Group | Unknown | + + + Author + + + | Author | [facility] | | | and [place] | + + + | Organization | [facility] | | | and [...] Team Providers + +------+ + | Care Community Outreach Worker Name | Role | Phone | + +------+ + | Camilo Cormier MD | PCP | | + +------+ + Reason for Visit + + + | Reason | Comments | + + + | Medication Problem | | + + + Encounter Details +--------+ + + + + | Date | Type | Department | Care Team | Description | +--------+ + + + + | 12/31/ | Telephone | [facility] | Viktor Lee MD | Medication Problem | | 2017 | | NEUROSURGERY [address] | | | | | [address] | [place] [address] | | | | | [place] | [phone] | | | | | [address] | | | | | | [phone] | | | +--------+ + + + [...]
--- OUTSIDE RECORDS SUMMARY | ~2019-10-05 | XMS | Encounter Summary ---
Demographics + + + | Address | [address] | | | [place] [address] | + + + | Home Phone [...] + + + | Author | [facility] | | | and [place] | + + + | Organization | 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
--- OUTSIDE RECORDS SUMMARY | ~2019-10-05 | XMS | Encounter Summary ---
Demographics + + + | Address | [address] | | | [place] [address] | + + + | Home Phone | | + + + | Preferred Language | Unknown | + + + | Marital Status | Single | + + + | Confucianist Affiliation | 1013 | + + + | Race | Unknown | + + + | Ethnic Group | Unknown | + + + Author + + + | Author | [facility] | | | and [place] | + + + | Organization | [facility] | | | [...] Team Providers + +------+ + | Care Trampoline Team Coach Name | Role | Phone | + [...] | | [address] | [place] [address] | | | | | [place] | [phone] | | | | | [address] | | | | | | [phone] | | | +--------+ + + + [...]
--- OUTSIDE RECORDS SUMMARY | ~2019-10-05 | XMS | Encounter Summary ---
Demographics + + + | Address | [address] | | | [place] [address] | + + + | Home Phone | | + + + | Preferred Language | Unknown | + + + | Marital Status | Single | + + + | Pentecostal Affiliation | 1013 | + + + | Race | Unknown | + + + | Ethnic Group | Unknown | + + + Author + + + | Author | [facility] | | | and [place] | + + + | Organization | [facility] | | | and [...] Team Providers + +------+ + | Care Alternative Medicine Practitioner Name | Role | Phone | [...] | | [address] | [place] [address] | | | | | [place] | [phone] | | | | | [address] | | | | | | [phone] | | | +--------+ + + + [...]
--- OUTSIDE RECORDS SUMMARY | ~2019-10-05 | XMS | Encounter Summary ---
Demographics + + + | Address | [address] | | | [place] [address] | + + + | Home Phone | | + + + | Preferred Language | Unknown | + + + | Marital Status | Single | + + + | Mandaen Affiliation | 1013 | + + + | Race | Unknown | + + + | Ethnic Group | Unknown | + + + Author + + + | Author | [facility] | | | and [place] | + + + | Organization | [facility] | | | and [...] Team Providers + +------+ + | Care Automobile Mechanic Assistant Name | Role | Phone | + [...] | | [address] | [place] [address] | | | | | [place] | [phone] | | | | | [address] | | | | | | [phone] | | | +--------+ + + + [...]
[~2019-10-05 18:24] MED LIST: TRAMADOL HCL50 MG PO
[2019-10-05] MEDS ORDERED: VITAMIN D250 MCG PO (18:33)
[2019-10-05] MEDS ORDERED: VENTOLIN HFA18 GM INH (18:33)
[2019-10-05] MEDS ORDERED: NORCO 5-325 TA1 EACH PO (20:42)
[2019-10-05] MEDS ORDERED: MELOXICAM15 MG PO (20:42)
== END 2019-10-05 21:01 | disposition home or self-care (01) ==
LOC: ED 18:24
DX: M72.2 Plantar fascial fibromatosis (principal); F17.200 Nicotine dependence, unspecified, uncomplicated
CPT/HCPCS: 73650; 99283-25

== ENCOUNTER 2020-09-16 23:02 | Emergency (ER) | payer OTHER ==
[~2020-09-16] VITALS: Ht 165.1 cm; Wt 108.0 kg
[~2020-09-16 23:02] MED LIST changes: +MELOXICAM15 MG PO; +NORCO 5-325 TA1 EACH PO; +VENTOLIN HFA18 GM INH; +VITAMIN D250 MCG PO
[2020-09-16] MEDS ORDERED: NORCO 5-325 TA1 EACH PO (23:41)
[2020-09-17] MEDS ORDERED: AMOXICILLIN500 MG PO (00:57)
== END 2020-09-17 | disposition home or self-care (01) ==
LOC: ED 23:02
DX: K02.9 Dental caries, unspecified (principal)
CPT/HCPCS: 99282

== ENCOUNTER 2021-10-29 14:28 | Emergency (ER) | payer OTHER ==
[~2021-10-29 14:28] MED LIST changes: +AMOXICILLIN500 MG PO
[2021-10-29] MEDS ORDERED: LEVO-T100 MCG PO (15:10)
[2021-10-29] MEDS ORDERED: CYMBALTA30 MG PO (15:11)
[2021-10-29] MEDS ORDERED: NEURONTIN100 MG PO (15:12)
--- NOTE | 2021-10-30 20:44 | EKG ---
[facility] [address] [facility] [place], [place] [address] Signed Normal sinus rhythm Right atrial enlargement Right superior axis deviation Pulmonary disease pattern Abnormal ECG No previous ECGs available Confirmed by LENNY BURROWS DO ([id number]) on 10/30/2021 8:43:57 PM Electronically Signed By: LENNY BURROWS DO 10/30/212043 PATIENT NAME: MAYELIN VIDES Electrocardiogram DATE OF : 74 PHYSICIAN: LENNY BURROWS DO REPORT #: [id number] REPORT IS CONFIDENTIAL AND NOT TO BE RELEASED WITHOUT AUTHORIZATION
== END 2021-10-29 17:29 | disposition home or self-care (01) ==
LOC: ED 14:28
DX: R00.2 Palpitations (principal); J45.909 Unspecified asthma, uncomplicated; M19.90 Unspecified osteoarthritis, unspecified site; M79.7 Fibromyalgia; Z87.891 Personal history of nicotine dependence; Z79.51 Long term (current) use of inhaled steroids; Z79.890 Hormone replacement therapy; Z79.899 Other long term (current) drug therapy
CPT/HCPCS: 80048; 85025; 93005; 93010; 99285-25